=== PATIENT | female | born 1960 | race Caucasian/White ===

== ENCOUNTER 2017-05-15 15:49 | Emergency (ER) | payer SELFPAY ==
[2017-05-15] MEDS ORDERED: BUPIVACAINE HCL 0.75% INJ/PF (7.5 MG/1 ML) 10 ML SDV INJ ONE (16:47)
--- NOTE | 2017-05-15 16:49 | RADIOLOGY REPORT (SQ) ---
EXAM DESCRIPTION: CHEST PA/LAT COMPLETED DATE/TIME: 05/15/2017 4:39 pm REASON FOR STUDY: cough and congestion COMPARISON: None. EXAM PARAMETERS: NUMBER OF VIEWS: two views TECHNIQUE: Digital Frontal and Lateral radiographic views of the chest acquired. RADIATION DOSE: NA LIMITATIONS: none FINDINGS: LUNGS AND PLEURA: Diffuse honeycomb interstitial increased markings are present throughout the periphery of both lungs from pulmonary fibrosis. There is more dense consolidation in the right middle lobe, atelectasis versus pneumonia. Underlying mass could not entirely be excluded. No pleural effusion. No pneumothorax. MEDIASTINUM AND HILAR STRUCTURES: Fullness in the right middle lobe near the right hilum, atelectasis versus pneumonia. Mass could not be excluded. HEART AND VASCULAR STRUCTURES: Heart normal size. No evidence for failure. BONES: No acute findings. HARDWARE: None in the chest. OTHER: No other significant finding. IMPRESSION: Advanced pulmonary fibrosis Atelectasis versus pneumonia versus mass, right lower hilum/medial right middle lobe. TECHNICAL DOCUMENTATION: JOB ID: [id number] [employer]- All Rights Reserved
--- NOTE | 2017-05-15 17:16 | RADIOLOGY REPORT (SQ) ---
EXAM DESCRIPTION: CT CHEST WITHOUT COMPLETED DATE/TIME: 05/15/2017 4:59 pm REASON FOR STUDY: abnormal CXR COMPARISON: None. TECHNIQUE: CT scan performed of the chest without intravenous contrast. Images reviewed with lung, soft tissue and bone windows. Reconstructed coronal and sagittal MPR images reviewed. All images st ored on PACS. All CT scanners at this facility use dose modulation, iterative reconstruction, and/or weight based d osing when appropriate to reduce radiation dose to as low as reasonably achievable (ALARA). [facility]: Dose Right [facility]: CareDose [facility]: Dose Right [facility]: Teradose 4D [facility]: Medicine in Practice RADIATION DOSE: 5.4 mGy. LIMITATIONS: No technical limitations. FINDINGS: LUNGS AND PLEURA: Extensive pulmonary fibrosis is present with a honeycomb interstitial pa ttern throughout the periphery of both lungs. There is minimal consolidation in the right and left posterior costophrenic sulci on axial images 48- 52, likely atelectasis. Minimal pneumonia could not be excluded. No pleural effusion. No pneumothorax. HILAR AND MEDIASTINAL STRUCTURES: There is mediastinal and right hilar adenopathy, abnormal but nonsp ecific. Enlarged lymph nodes are as follows: Pretracheal 1.6 x 1.3 cm axial image 18 Pretracheal 1.1 x 1.1 cm axial image 22 Precarinal 1.8 x 1.5 cm axial image 26 Right hilar 2 x 1 cm axial image 29 Sub- carinal 2 x 1 cm axial image 29 HEART AND VASCULAR STRUCTURES: No aneurysm. No pericardial effusion. No cardiomegaly. Heavy hartley ry artery calcifications. UPPER ABDOMEN: Multiple less than 1 cm left upper pole hemorrhagic cysts, left kidney THYROID AND OTHER SOFT TISSUES: No masses. No adenopathy. BONES: No significant finding. HARDWARE: None in the chest. OTHER: No other significant findings. IMPRESSION: Minimal airspace disease in the right and left posterior costophrenic sulci, atelectasis versus pneumonia. Advanced diffuse pulmonary fibrosis Nonspecific mediastinal adenopathy TECHNICAL DOCUMENTATION: JOB ID: [id number] Quality ID # [id number]: Final reports with documentation of one or more dose reduction techniques (e.g., Au tomated exposure control, adjustment of the mA and/or kV according to patient size, use of iterative reconstruction technique) 2010 [employer]- All Rights Reserved
--- NOTE | 2017-05-15 18:27 | ER Document Report ---
ED General - General Chief Complaint: Congestion Stated Complaint: FLU SYMPTOMS Time Seen by Provider: 05/15/17 16:05 Mode of Arrival: Ambulatory Information source: Patient TRAVEL OUTSIDE OF THE [place] IN LAST 30 DAYS: No - HPI Notes: Patient presents with over 2 weeks of cough and intermittent sputum production states she has been feeling chilly and feverish. Patient is a daily smoker. Denies any chest pain. She does have intermittent shortness of breath with the cough and congestion. Denies any abdominal pain nausea vomiting or diarrhea. - Related Data Allergies/Adverse Reactions: No Known Allergies Allergy (Unverified 05/15/17 15:52) Past Medical History - Social History Smoking Status: Current Every Day Smoker Chew tobacco use (# tins/day): No Frequency of alcohol use: None Drug Abuse: None Family History: None Patient has suicidal ideation: No Patient has homicidal ideation: No Renal/ Medical History: Denies: Hx Peritoneal Dialysis Review of Systems - Review of Systems Constitutional: Chills, Fever, Malaise EENT: No symptoms reported Cardiovascular: No symptoms reported Respiratory: Short of breath, Sputum Gastrointestinal: No symptoms reported Genitourinary: No symptoms reported Musculoskeletal: No symptoms reported Skin: No symptoms reported Neurological/Psychological: No symptoms reported Physical Exam - Vital signs Vitals: Temp Pulse Resp BP Pulse Ox 98.4 F 127 H 18 183/96 H 96 05/15/17 15:55 05/15/17 15:55 05/15/17 15:55 05/15/17 15:55 05/15/17 15:55 - HEENT Head: Atraumatic Eyes: Normal Conjunctiva: Normal Extraocular movements intact: Yes Pupils: PERRL - Respiratory Chest status: Nontender Breath sounds: Nonproductive cough Chest palpation: Normal - Cardiovascular Rhythm: Tachycardia Heart sounds: Normal auscultation - Abdominal Distension: No distension Bowel sounds: Normal Tenderness: Nontender - Back Back: Normal - Extremities General lower extremity: Normal inspection - Neurological Cognition: Normal Orientation: AAOx4 - Skin Skin Color: Normal Course - Re-evaluation Re-evalutation: 05/15/17 18:26 Patient has abnormal chest x-ray with concern for possible tumor CT of chest shows concern for possible bibasilar infiltrates as well as enlarged mediastinal lymph nodes. Discussed findings with patient patient will be placed on antibiotics and need for follow-up with her primary care physician for further evaluation of her lymphadenopathy. Return precautions provided - Vital Signs Vital signs: Temp Pulse Resp BP Pulse Ox 98.4 F 127 H 18 183/96 H 96 05/15/17 15:55 05/15/17 15:55 05/15/17 15:55 05/15/17 15:55 05/15/17 15:55 - Diagnostic Test Radiology results interpreted by me: 05/15/17 18:26 Bibasilar infiltrates as well as mediastinal lymphadenopathy Discharge - Discharge Condition: Good Disposition: HOME, SELF-CARE Additional Instructions: Pneumonia Your examination indicates that you have pneumonia. This is an infection of the lung tissue, usually caused by bacteria or a virus. Symptoms include cough, fever, shaking chills, chest pain, shortness of breath, and coughing up bloody sputum. Treatment for bacterial pneumonia includes rest, antibiotics for 10 to 14 days, increasing your clear liquid intake, a cool mist humidifier at your bedside, and fever medication. Often, a repeat chest X-ray is performed in a few weeks--even if you feel better--to ascertain whether the infection has completely resolved and no underlying lung problem is present. You should call the physician if you develop persistent vomiting, high fever that does not respond to fever medication, increasing shortness of breath , confusion, or lethargy. Also, failure to improve within two to three days is an indication for re-examination. You have findings on your chest CT that shows enlarged lymph nodes that need to be further evaluated outpatient. Please follow-up with your family doctor Prescriptions: Albuterol Sulfate [Proair HFA Inhalation Aerosol 8.5 gm MDI] 2 puff IH Q4H PRN # 1 mdi PRN Reason: Levofloxacin [Levaquin 750 mg Tablet] 750 mg PO DAILY #10 tablet
[2017-05-15 18:48] VITALS: BP 150/90
== END 2017-05-15 18:43 | disposition home or self-care (01) ==
LOC: ER 15:49
DX: J18.9 Pneumonia, unspecified organism (principal); R50.9 Fever, unspecified; F17.200 Nicotine dependence, unspecified, uncomplicated
CPT/HCPCS: 71020; 71250; 99284

== ENCOUNTER 2017-08-26 01:21 | Observation (INO) | payer SELFPAY ==
[2017-08-26] MEDS ORDERED: ASPIRIN 81 MG TABLET, CHEWABLE PO ONE (01:43)
[2017-08-26] MEDS ORDERED: FENTANYL CITRATE INJ/PF 100 MCG/2 ML AMPUL IV ONE ×3 (01:44→09:08)
[2017-08-26] MEDS ORDERED: ONDANSETRON HCL INJ/PF 4 MG/2 ML SDV IV ONE (01:44)
[2017-08-26] MEDS ORDERED: NORMAL SALINE 1000 ML 500 ML IV ONE (01:44)
--- NOTE | 2017-08-26 01:47 | ER Document Report ---
ED Cardiac - General Chief Complaint: Chest Pain Stated Complaint: CHEST PAINS TROUBLE BREATHING Time Seen by Provider: 08/26/17 01:38 Notes: Patient is a 56-year-old female that comes emergency department for chief complaint of worsening pains in her chest, shortness of breath, and a pounding sensation in her chest which gives her headache. She also states that her legs have been swollen on both sides "for a while". She has a dry cough. She states she cannot sleep because of the discomfort across her chest on both sides. She is a daily smoker, she denies any other medical history including cardiac history. She states she tried to follow-up with primary care but she could not get an appointment. TRAVEL OUTSIDE OF THE [place] IN LAST 30 DAYS: No - Related Data Allergies/Adverse Reactions: No Known Allergies Allergy (Unverified 05/15/17 15:52) Past Medical History - General Information source: Patient - Social History Smoking Status: Current Every Day Smoker Frequency of alcohol use: None Drug Abuse: None Lives with: Spouse/Significant other Family History: None Renal/ Medical History: Denies: Hx Peritoneal Dialysis Surgical Hx: Negative - Immunizations Hx Diphtheria, Pertussis, Tetanus Vaccination: Yes Review of Systems - Review of Systems Constitutional: No symptoms reported EENT: No symptoms reported Cardiovascular: See HPI Respiratory: See HPI Gastrointestinal: No symptoms reported Genitourinary: No symptoms reported Female Genitourinary: No symptoms reported Musculoskeletal: No symptoms reported Skin: No symptoms reported Hematologic/Lymphatic: No symptoms reported Neurological/Psychological: See HPI Physical Exam - Vital signs Vitals: Temp 98.0 F 08/26/17 01:40 - General General appearance: Anxious In distress: None - HEENT Head: Normocephalic, Atraumatic Eyes: Normal Conjunctiva: Normal Extraocular movements intact: Yes Eyelashes: Normal Pupils: PERRL Nasal: Normal Mouth/Lips: Normal Mucous membranes: Normal Pharynx: Normal Neck: Normal - Respiratory Respiratory status: No respiratory distress. No: Labored, Tachypnea Breath sounds: Decreased air movement. No: Nonproductive cough, Wheezing - Cardiovascular Rhythm: Regular, Tachycardia Heart sounds: Normal auscultation, S1 appreciated, S2 appreciated - Abdominal Inspection: Normal Tenderness: Nontender - Back Back: Normal, Nontender. No: Tender, CVA tenderness - Extremities General upper extremity: Normal inspection, Nontender, Normal ROM, Normal strength General lower extremity: Normal inspection, Nontender, Edema - 1+ edema bilaterally, normal distal neurovascular exam, Normal ROM, Normal strength - Neurological Neuro grossly intact: Yes Cognition: Normal Orientation: AAOx4 Shell Coma Scale Eye Opening: Spontaneous Marcus Coma Scale Verbal: Oriented Shell Coma Scale Motor: Obeys Commands Shell Coma Scale Total: 15 Speech: Normal Motor strength normal: LUE, RUE, LLE, RLE Sensory: Normal - Psychological Associated symptoms: Anxious - Skin Skin Temperature: Warm Skin Moisture: Dry Skin Color: Normal Course - Re-evaluation Re-evalutation: Patient appears slightly anxious, she is tachycardic, hypertensive, complaining of pain across her chest. Reports cough but none noticed on exam. Decreased breath sounds but no wheezing, no labored breathing, no respiratory distress. EKG showing sinus tachycardia. CBC, chemistry generally unremarkable, troponin is not elevated, BNP is normal. TSH is very slightly elevated, T3 and T4 are unremarkable. D-dimer is positive. Discussed with patient, will perform CTA, because of upper abdominal and lower chest pain along with hypertension and tachycardia decision was made to perform of the chest, abdomen/pelvis. 08/26/17 CAT scan with multiple abnormalities including lymphadenopathy in the hilum on the right side, mediastinum, upper abdomen, and retroperitoneum. Moderate splenomegaly. 3 cm abdominal aortic aneurysm was recommended following, common bile duct with mild dilatation, however patient does not have right upper quadrant tenderness on my palpation. Pulmonary arterial hypertension as well. Mild small bowel ileus. No PE. Patient has improvement in her tachycardia with heart rate being 108, patient initially had improvement with blood pressure but now is hypertensive again. Patient was discussed in detail with Dr. Pearce, he recommends admission for additional evaluation of undifferentiated tachycardia, hypertension, shortness of breath, and a variety of findings on her CAT scan. 08/26/[address] Pinzon, patient will be admitted to telemetry. Patient states understanding and agreement. - Vital Signs Vital signs: Temp Pulse Resp BP Pulse Ox 98.0 F 112 H 16 174/111 H 95 08/26/17 01:40 08/26/17 05:45 08/26/17 06:01 08/26/17 06:01 08/26/17 06:01 - Laboratory Result Diagrams: 08/26/17 02:05 08/26/17 02:05 Laboratory results interpreted by me: 08/26/17 08/26/17 08/26/17 02:05 02:05 02:05 RDW 15.1 H Plt Count 114 L D-Dimer 2.03 H Total Bilirubin 1.5 H Direct Bilirubin 0.6 H AST 71 H Free T3 pg/mL 08/26/17 02:05 RDW Plt Count D-Dimer Total Bilirubin Direct Bilirubin AST Free T3 pg/mL 5.35 H Discharge - Discharge Clinical Impression: Tachycardia, Shortness of breath, Swelling of lower extremity Chest pain Qualifiers: Chest pain type: unspecified Qualified Code(s): R07.9 - Chest pain, unspecified Condition: Fair Disposition: ADMITTED INPATIENT Admitting Provider: Hospitalist Unit Admitted: Telemetry
--- NOTE | 2017-08-26 02:33 | RADIOLOGY REPORT (SQ) ---
EXAM DESCRIPTION: CHEST SINGLE VIEW CLINICAL HISTORY: 56 years Female, chest pain COMPARISON: CT and CR 05/15/2017. NUMBER OF VIEWS/TECHNIQUE: 1/AP LIMITATIONS: None. FINDINGS: Mild chronic interstitial lung disease pattern, normal cardiac silhouette, and intact bony thorax. Stable. IMPRESSION: Mild chronic interstitial lung disease pattern.
[2017-08-26 02:37] LABS: ABSOLUTE EOSINOPHILS # (AUTO) 0.2 10^3/uL (0.0-0.6); ABSOLUTE LYMPHOCYTES (AUTO) 1.7 10^3/uL (0.5-4.7); ABSOLUTE MONOCYTES (AUTO) 0.5 10^3/uL (0.1-1.4); ABSOLUTE NEUT (AUTO) 5.5 10^3/uL (1.7-8.2); BASOPHILS % (AUTO) 0.4 % (0-2); EOSINOPHILS % (AUTO) 2.8 % (0-6); HEMATOCRIT 40.9 % (36.0-47.0); HEMOGLOBIN 14.1 g/dL (12.0-15.5); MEAN CORPUSCULAR HEMOGLOBIN 30.8 pg (27.0-33.4); MEAN CORPUSCULAR HGB CONC 34.5 g/dL (32.0-36.0); MEAN CORPUSCULAR VOLUME 89 fl (80-97); MONOCYTES % (AUTO) 6.8 % (3-13); PLATELET COUNT 114 10^3/uL (150-450); RED BLOOD COUNT 4.57 10^6/uL (3.72-5.28); RED CELL DISTRIBUTION WIDTH 15.1 % (11.5-14.0); TOTAL CELLS COUNTED % (AUTO) 100 %
[2017-08-26 02:50] LABS: ALANINE AMINOTRANSFERASE 50 U/L (9-52); ALKALINE PHOSPHATASE 124 U/L (38-126); ANION GAP 11 (5-19); ASPARTATE AMINO TRANSFERASE 71 U/L (14-36); BILIRUBIN,DIRECT 0.6 mg/dL (0.0-0.4); BILIRUBIN,TOTAL 1.5 mg/dL (0.2-1.3); BLOOD UREA NITROGEN 12 mg/dL (7-20); CALCIUM 8.9 mg/dL (8.4-10.2); CARBON DIOXIDE 25 mmol/L (22-30); CHLORIDE 106 mmol/L (98-107); CREATINE KINASE 62 U/L (30-135); GLUCOSE 103 mg/dL (75-110); POTASSIUM 3.9 mmol/L (3.6-5.0); SODIUM 141.7 mmol/L (137-145)
[2017-08-26 03:03] LABS: CREATINE KINASE MB 0.92 ng/mL (<4.55); NT PRO BNP 227 pg/mL (5-900)
[2017-08-26 03:06] LABS: TROPONIN I < 0.012 ng/mL
[2017-08-26 03:58] LABS: VENOUS BLOOD BASE EXCESS 0.7 mmol/L; VENOUS BLOOD HCO3 25.6 mmol/L (20-32); VENOUS BLOOD PCO2 42.1 mmHg (35-63); VENOUS BLOOD PH 7.4 (7.30-7.42)
[2017-08-26 04:40] LABS: FREE T3 5.35 pg/mL (2.77-5.27); FREE T4 (FREE THYROXINE) 1.45 ng/dL (0.78-2.19)
[2017-08-26 04:54] LABS: THYROID STIMULATING HORMONE 4.16 uIU/mL (0.47-4.68)
--- NOTE | 2017-08-26 06:08 | RADIOLOGY REPORT (SQ) ---
EXAM DESCRIPTION: CTA CHEST (accession [id number]), CTA ABDOMEN/PELVIS W WO (accession [id number]) CLINICAL HISTORY: 56 years Female, tachycardic, chest/abd pain, LE swelling, DDIMER 2.03 COMPARISON: CT, chest, 05/15/2017, report only TECHNIQUE: 100 mL Isovue-370 IV contrast. Multiplanar reformat. This exam was performed according to our departmental dose-optimization program, which includes automated exposure control, adjustment of the mA and/or kV according to patient size and/or use of iterative reconstruction technique. FINDINGS: 2.6 cm diameter left main pulmonary artery and 2.7 cm right main pulmonary artery which suggests pulmonary arterial hypertension. Small coronary arterial calcification. Moderate right hilar and mild mediastinal lymphadenopathy. Moderate splenomegaly with splenic index of 1021. Atherosclerosis includes an infrarenal abdominal aortic aneurysm measuring 3 x 2.9 cm in cross-sectional diameters. Common bile duct diameter is 1.1 cm. Moderate upper abdominal periceliac lymphadenopathy. Moderate paraseptal emphysema. Mild fibrosis pattern of the lower lung mendoza. Moderate L5-S1 desiccated disc bulge. Mild small bowel ileus pattern. No pulmonary embolus. No right ventricular strain. Patent celiac and superior mesenteric arteries. Mild bilateral renal arterial stenosis. Normal appendix. Minimal free fluid in the pelvis. Inferior neck, axillae, airway, heart, liver, gallbladder, pancreas, adrenals, renal system, pelvic organs, and musculoskeleton appear otherwise unremarkable. IMPRESSION: 1. Moderate lymphadenopathy involves the right hilum, mediastinum, upper abdomen, and retroperitoneum. Moderate splenomegaly. Infectious, inflammatory, neoplastic processes are in the differential diagnosis. 2. A 3 cm diameter abdominal aortic aneurysm. Recommended follow-up: Every three years. 3. Common bile duct diameter is 1.1 cm. Consider laboratory/sonographic correlation. 4. Pulmonary arterial hypertension pattern. No evidence of pulmonary embolus. 5. Mild small bowel ileus.
--- NOTE | 2017-08-26 08:26 | EKG REPORT ---
SEVERITY:- ABNORMAL ECG - SINUS TACHYCARDIA ATRIAL PREMATURE COMPLEX PROBABLE LVH WITH SECONDARY REPOL ABNRM : Confirmed by: Cheo Hernandez MD 26-Aug-2017 08:25:26
[2017-08-26] MEDS ORDERED: MAGNESIUM HYDROXIDE SUSP 30 ML UDCUP PO PRN (10:10)
[2017-08-26] MEDS ORDERED: MAG HYDROX/AL HYDROX/SIMETH SUSP 30 ML UDCUP PO PRN (10:10)
[2017-08-26] MEDS ORDERED: ACETAMINOPHEN 325 MG TABLET PO PRN (10:10)
[2017-08-26] MEDS ORDERED: ONDANSETRON HCL INJ/PF 4 MG/2 ML SDV IV PRN (10:10)
[2017-08-26] MEDS ORDERED: LEVALBUTEROL HCL NEB 1.25 MG/3 ML AMPUL NEB PRN (10:50)
[2017-08-26] MEDS: OXYCODONE HCL IR 5 MG TABLET PO PRN ×3 (12:03→20:32)
[2017-08-26] MEDS ORDERED: HYDRALAZINE HCL INJ/PF 20 MG/1 ML SDV IV PRN (13:16)
[2017-08-26] MEDS: HEPARIN SOD (PORCINE) 5,000 UNIT/ML 1 ML SYRINGE SUBCUT SCH ×2 (13:48→21:40)
--- NOTE | 2017-08-26 17:55 | XCELERA REPORT ---
[address] [address] Transthoracic Echocardiogram Report Name: FRANKLIN SOTO Age: 56 yrs Gender: Female : 1960 Patient Status: Inpatient Patient Location: [address] [place] [address] Study Date: 08/26/2017 12:45 PM Height: 65 in Weight: 150 lb BSA: 1.8 m2 Procedure: A complete two-dimensional transthoracic echocardiogram was performed (2D, M-mode, spectral and color flow Doppler). The study was technically adequate with some images being suboptimal in quality. Reason For Study: dyspnea, edema Ordering Physician: ANGELA LEDBETTERC Performed By: Monica Ortiz Interpretation Summary Left ventricular systolic function is low normal. There is borderline concentric left ventricular hypertrophy. Doppler measurements suggest pseudonormalized left ventricular relaxation, which is associated with grade II/IV or mild to moderate diastolic dysfunction Wall motion cannot be accurately commented on, but no definite regional wall motion abnormalities noted. The left ventricle is grossly normal size. The right ventricular systolic function is normal. The left atrium is mildly dilated. The right atrium is normal in size There is a mild amount of mitral regurgitation There is no mitral valve stenosis. There is a trace to mild amount of aortic regurgitation There is no aortic valve stenosis There is a trace to mild amount of tricuspid regurgitation There is mild pulmonary hypertension by echo Right ventricular systolic pressure is estimated to be elevated at 30- 40mmHg. The aortic root is not well visualized but is probably normal size. The inferior vena cava appeared normal and decreased > 50% with respiration (RAP 5-10 mmHg) There is no pericardial effusion. MMode/2D Measurements & Calculations RVDd: 1.6 cm LVIDd: 4.8 cm FS: 32.2 % Ao root diam: 2.4 cm IVSd: 0.79 cm LVIDs: 3.3 cm EDV(Teich): 107.1 ml LVPWd: 0.81 cm ESV(Teich): 42.6 ml Ao root area: 4.4 cm2 EF(Teich): 60.2 % Doppler Measurements & Calculations MV E max bobby: MV dec slope: Ao V2 max: AI max bobby: 94.7 cm/sec 172.0 cm/sec 347.6 cm/sec MV A max bobby: 859.7 cm/sec2 Ao max PG: AI max P.2 cm/sec MV dec time: 11.8 mmHg 48.3 mmHg MV E/A: 0.82 0.11 sec AI dec slope: 65.3 cm/sec2 AI P1/2t: 1558 msec LV V1 max PG: PA V2 max: TR max bobby: 6.9 mmHg 85.3 cm/sec 302.1 cm/sec LV V1 max: PA max P.9 mmHg TR max P.5 cm/sec 36.5 mmHg Left Ventricle The left ventricle is grossly normal size. There is borderline concentric left ventricular hypertrophy. Left ventricular systolic function is low normal. Doppler measurements suggest pseudonormalized left ventricular relaxation, which is associated with grade II/IV or mild to moderate diastolic dysfunction. Wall motion cannot be accurately commented on, but no definite regional wall motion abnormalities noted. Right Ventricle The right ventricle is grossly normal size. There is normal right ventricular wall thickness. The right ventricular systolic function is normal. Atria The right atrium is normal in size. The left atrium is mildly dilated. Interarterial septum not well visualized and not well dopplered. Cannot comment on ASD/PFO presence. Mitral Valve The mitral valve leaflets are sclerotic, but show no functional abnormalities. There is no mitral valve stenosis. There is a mild amount of mitral regurgitation. Aortic Valve The aortic valve is not well visualized secondary to technical limitations. There is no aortic valve stenosis. There is a trace to mild amount of aortic regurgitation. Tricuspid Valve The tricuspid valve is not well visualized, but is grossly normal. There is no tricuspid stenosis. There is a trace to mild amount of tricuspid regurgitation. There is mild pulmonary hypertension by echo. Right ventricular systolic pressure is estimated to be elevated at 30-40mmHg. Pulmonic Valve The pulmonic valve is not well visualized. Great Vessels The aortic root is not well visualized but is probably normal size. The inferior vena cava appeared normal and decreased > 50% with respiration (RAP 5-10 mmHg). Effusions There is no pericardial effusion. : RADHA LEDBETTER > Jennifer Castillo
[2017-08-26] MEDS ORDERED: LORAZEPAM 0.5 MG TABLET PO PRN (18:19)
[2017-08-26] MEDS ORDERED: LISINOPRIL 10 MG TABLET PO ONE (18:45)
[2017-08-26] MEDS ORDERED: NICOTINE 14 MG/24 HR PATCH.TD24 TD PRN (18:46)
--- NOTE | 2017-08-26 18:47 | PDOC H&P ---
History of Present Illness Admission Date/PCP: 08/26/17 07:44 Patient complains of: Dyspnea History of Present Illness: FRANKLIN SOTO is a 56 year old female with no known past medical history secondary to poor healthcare access; the patient states that she has never had routine health care services. The patient presented to the emergency department with a complaint of dyspnea and bilateral lower leg edema that have been progressively worsening over the last 5-6 months. She states that her symptoms have significantly worsened since June when she was treated for pneumonia as an outpatient after a visit to the emergency department with no care follow-up afterwards. She states that since that time she has developed discomfort with breathing especially to the diaphragm area, fatigue, and generalized body aches. She denies fever, chills, typical cardiac chest pain symptoms, palpitations, orthopnea, abdominal pain, vomiting and diarrhea. She does endorse generalized abdominal discomfort. Additionally, the patient denies weight loss. Evaluation in the emergency department revealed tachycardia with heart rate initially in the 120s, hypertension 170/110. [place] workup was essentially normal other than an elevated d-dimer and bilirubin. Chest x-ray showed mild chronic interstitial lung disease. Follow-up CTA of the chest and abdomen demonstrated moderate lymphadenopathy to the mediastinum, upper abdomen, retroperitoneum with splenomegaly, a 3 cm AAA, dilated common bile duct to 1.1 cm, pulmonary atrial hypertension, and a mild small bowel ileus. The patient was referred to the hospitalist service for admission and continued evaluation of the undifferentiated tachycardia, hypertension, dyspnea, and abnormal CTA findings. Past Medical History Cardiac Medical History: Reports: Hypertension Pulmonary Medical History: Reports: None EENT Medical History: Reports: None Neurological Medical History: Reports: None Endocrine Medical History: Reports: None Renal/ Medical History: Reports: None Malignancy Medical History: Reports: None GI Medical History: Reports: None Musculoskeltal Medical History: Reports: None Skin Medical History: Reports: None Psychiatric Medical History: Reports: Tobacco Dependency Traumatic Medical History: Reports: None Hematology: Reports: None Infectious Medical History: Reports: None Past Surgical History Past Surgical History: Reports: Other - Skin grafts to left lower extremity as child Social History Information Source: Patient, Relative Lives with: Family, Spouse/Significant other Smoking Status: Current Every Day Smoker Cigarettes Packs Per Day: 1 Number of Years Smokin Frequency of Alcohol Use: None Hx Recreational Drug Use: No Drugs: None Hx Prescription Drug Abuse: No - Advance Directive Resuscitation Status: Full Code Family History Family History: CAD, DM, Hyperlipidemia, Hypertension, Malignancy Family History: Sister: Colon cancer Parental Family History Reviewed: Yes - Mother: [place], DM, CAD, breast CA Children Family History Reviewed: Yes Sibling(s) Family History Reviewed.: Yes Medication/Allergy Home Medications: No Home Medications 08/26/17 Allergies/Adverse Reactions: No Known Allergies Allergy (Verified 08/26/17 07:47) Review of Systems Constitutional: PRESENT: fatigue. ABSENT: chills, fever(s), headache(s), weight gain, weight loss Eyes: ABSENT: visual disturbances Ears: ABSENT: hearing changes Cardiovascular: PRESENT: dyspnea on exertion. ABSENT: chest pain, edema, orthropnea, palpitations Respiratory: PRESENT: dyspnea. ABSENT: cough, hemoptysis Gastrointestinal: PRESENT: nausea. ABSENT: abdominal pain, constipation, diarrhea, hematemesis, hematochezia, vomiting Genitourinary: PRESENT: other - Intermittent uterine bleeding. ABSENT: dysuria , hematuria Musculoskeletal: PRESENT: other - BLE trace edema. ABSENT: joint swelling Integumentary: ABSENT: rash, wounds Neurological: PRESENT: paresthesias - Fingers and toes. ABSENT: abnormal gait, abnormal speech, confusion, dizziness, focal weakness, syncope Psychiatric: ABSENT: anxiety, depression, homidical ideation, suicidal ideation Endocrine: ABSENT: cold intolerance, heat intolerance, polydipsia, polyuria Hematologic/Lymphatic: ABSENT: easy bleeding, easy bruising Physical Exam Vital Signs: Temp Pulse Resp BP Pulse Ox 98.2 F 101 H 16 170/103 H 96 08/26/17 15:39 08/26/17 16:23 08/26/17 16:23 08/26/17 15:39 08/26/17 16:23 Intake & Output 08/25/17 08/26/17 08/27/17 06:59 06:59 06:59 Intake Total 1000 Balance 1000 Weight 61.6 kg General appearance: PRESENT: no acute distress, well-developed, well-nourished Head exam: PRESENT: atraumatic, normocephalic Eye exam: PRESENT: conjunctiva pink, EOMI, PERRLA. ABSENT: scleral icterus Ear exam: PRESENT: normal external ear exam Mouth exam: PRESENT: moist, tongue midline Neck exam: ABSENT: carotid bruit, JVD, lymphadenopathy, thyromegaly Respiratory exam: PRESENT: clear to auscultation judi. ABSENT: rales, rhonchi, wheezes Cardiovascular exam: PRESENT: RRR. ABSENT: diastolic murmur, rubs, systolic murmur Pulses: PRESENT: normal dorsalis pedis pul Vascular exam: PRESENT: normal capillary refill GI/Abdominal exam: PRESENT: normal bowel sounds, soft. ABSENT: distended, guarding, mass, organolmegaly, rebound, tenderness Rectal exam: PRESENT: deferred Extremities exam: PRESENT: full ROM. ABSENT: calf tenderness, clubbing, pedal edema Neurological exam: PRESENT: alert, awake, oriented to person, oriented to place , oriented to time, oriented to situation, CN II-XII grossly intact. ABSENT: motor sensory deficit Psychiatric exam: PRESENT: appropriate affect, normal mood. ABSENT: homicidal ideation, suicidal ideation Skin exam: PRESENT: dry, intact, warm. ABSENT: cyanosis, rash Results Laboratory Results: 08/26/17 11:10 Troponin I < 0.012 Impressions: Chest X-Ray 08/26/17 01:43 IMPRESSION: Mild chronic interstitial lung disease pattern. Abdomen/Pelvis CTA 08/26/17 04:42 IMPRESSION: 1. Moderate lymphadenopathy involves the right hilum, mediastinum, upper abdomen, and retroperitoneum. Moderate splenomegaly. Infectious, inflammatory, neoplastic processes are in the differential diagnosis. 2. A 3 cm diameter abdominal aortic aneurysm. Recommended follow-up: Every three years. 3. Common bile duct diameter is 1.1 cm. Consider laboratory/sonographic correlation. 4. Pulmonary arterial hypertension pattern. No evidence of pulmonary embolus. 5. Mild small bowel ileus. Chest/Abdomen CTA 08/26/17 04:42 IMPRESSION: 1. Moderate lymphadenopathy involves the right hilum, mediastinum, upper abdomen, and retroperitoneum. Moderate splenomegaly. Infectious, inflammatory, neoplastic processes are in the differential diagnosis. 2. A 3 cm diameter abdominal aortic aneurysm. Recommended follow-up: Every three years. 3. Common bile duct diameter is 1.1 cm. Consider laboratory/sonographic correlation. 4. Pulmonary arterial hypertension pattern. No evidence of pulmonary embolus. 5. Mild small bowel ileus. Assessment & Plan - Diagnosis (1) Lymphadenopathy Is this a current diagnosis for this admission?: Yes Plan: Lymphadenopathy noted to the right hilum, mediastinum, upper abdomen, and retroperitoneal noted on CTA of unknown etiology; concerning for infectious, inflammatory, neoplastic process. The patient denies recent acute illnesses. LDH is elevated to 718 Blood and urine cultures are negative. HIV screening is negative. Hepatitis panel pending. The patient of healthcare, tobacco use, and family history of cancers, I am concerned about potential malignant process. Will ask oncology to evaluate and make recommendations for additional workup. (2) Splenomegaly Is this a current diagnosis for this admission?: Yes Plan: We will consult hematology/oncology; appreciate their evaluation and recommendations. (3) Ileus Is this a current diagnosis for this admission?: Yes Plan: Mild small bowel ileus noted by CTA. The patient does endorse generalized abdominal discomfort and nausea without emesis or constipation. We will place the patient on a clear liquid diet. (4) Common bile duct dilation Is this a current diagnosis for this admission?: Yes Plan: Noted by CTA of the abdomen. The patient has generalized abdominal pain that is not appreciably worsened by palpation. She does have slight nausea and a small bowel ileus. Bilirubin is mildly elevated, AST 71, remaining LFTs are normal. We will evaluate amylase and lipase. We will consider abdominal ultrasound if abnormal. (5) Tachycardia Is this a current diagnosis for this admission?: Yes Plan: Of unclear etiology. Serial troponins are negative Thyroid panel is essentially normal. Blood and urine cultures are pending. No obvious indication of an infectious process and so hold on antibiotic therapies at this time. Patient has been admitted to [facility] on continuous cardiac telemetry The patient has been placed on Coreg 3.125 twice daily. (6) Dyspnea Is this a current diagnosis for this admission?: Yes Plan: Of unclear etiology. Serial troponins are negative Chest x-ray negative for infiltrate. No pulmonary embolus on CTA. Echocardiogram demonstrated a low normal LVEF with mild diastolic dysfunction. ProBNP is 227 Blood and urine cultures are pending. No obvious indication of an infectious process and so hold on antibiotic therapies at this time. The patient has been admitted to [facility] on continuous cardiac telemetry. Supplemental oxygen as needed to maintain oxygen saturations greater than 90% Xopenex as needed. Continue to monitor closely. (7) Hypertension Is this a current diagnosis for this admission?: Yes Plan: The patient has been placed on Coreg 3.125 twice daily and lisinopril 10 mg daily IV hydralazine as needed. We will continue to monitor and adjust medications as necessary. (8) Tobacco dependence Is this a current diagnosis for this admission?: Yes Plan: Again cessation is encouraged. Nicotine replacement therapy is offered. - Time Time Spent: Greater than 70 Minutes Smoking Cessation Education: 3 to 10 minutes Medications reviewed and adjusted accordingly: Yes - Inpatient Certification Based on my medical assessment, after consideration of the patient's comorbidities, presenting symptoms, or acuity I expect that the services needed warrant INPATIENT care.: Yes I certify that my determination is in accordance with my understanding of Medicare's requirements for reasonable and necessary INPATIENT services [42 CFR 412.3e].: Yes Medical Necessity: Need For Continuous Telemetry Monitoring, Risk of Diagnosis Which Will Require Inpatient Eval/Care/Monitoring
[2017-08-26] MEDS ORDERED: IPRATROPIUM/ALBUTEROL 0.5-2.5 MG/3 ML AMPUL NEB PRN (18:56)
[2017-08-26] MEDS ORDERED: LORAZEPAM 0.5 MG TABLET ONE (19:50)
[2017-08-26 20:37] LABS: LIPASE 257.6 U/L (23-300)
[2017-08-26] MEDS: FAMOTIDINE 20 MG TABLET PO SCH (21:35)
[2017-08-26] MEDS: ZOLPIDEM TARTRATE 5 MG TABLET PO PRN (21:35)
[2017-08-26] MEDS: FUROSEMIDE INJ/PF 20 MG/2 ML SDV IV SCH (21:35)
[2017-08-26] MEDS: BUDESONIDE/FORMOTEROL 160-4.5 MCG 60 PUFF/6 GM MDI IH SCH (21:41)
[2017-08-26] MEDS ORDERED: CARVEDILOL 3.125 MG TABLET PO SCH (22:00)
[2017-08-27] MEDS: HEPARIN SOD (PORCINE) 5,000 UNIT/ML 1 ML SYRINGE SUBCUT SCH ×3 (05:30→21:23)
[2017-08-27] MEDS: OXYCODONE HCL IR 5 MG TABLET PO PRN ×4 (05:30→21:22)
[2017-08-27 06:27] LABS: ABSOLUTE EOSINOPHILS # (AUTO) 0.2 10^3/uL (0.0-0.6); ABSOLUTE LYMPHOCYTES (AUTO) 2.2 10^3/uL (0.5-4.7); ABSOLUTE MONOCYTES (AUTO) 0.4 10^3/uL (0.1-1.4); ABSOLUTE NEUT (AUTO) 2.6 10^3/uL (1.7-8.2); BASOPHILS % (AUTO) 0.4 % (0-2); EOSINOPHILS % (AUTO) 3.4 % (0-6); HEMATOCRIT 40.8 % (36.0-47.0); HEMOGLOBIN 13.9 g/dL (12.0-15.5); MEAN CORPUSCULAR HEMOGLOBIN 30.7 pg (27.0-33.4); MEAN CORPUSCULAR VOLUME 90 fl (80-97); PLATELET COUNT 111 10^3/uL (150-450); RED BLOOD COUNT 4.52 10^6/uL (3.72-5.28); RED CELL DISTRIBUTION WIDTH 15.1 % (11.5-14.0); SEGMENTED NEUTROPHILS % (AUTO) 48.2 % (42-78); TOTAL CELLS COUNTED % (AUTO) 100 %; WHITE BLOOD COUNT 5.4 10^3/uL (4.0-10.5)
[2017-08-27 06:39] LABS: HEPATITIS A AB IGM Negative (Negative); HEPATITIS B CORE AB IGM Negative (Negative); HEPATITS B SURFACE ANTIGEN Negative (Negative)
[2017-08-27 06:46] LABS: CHOLESTEROL 154.32 mg/dL (0-200); TRIGLYCERIDES 67 mg/dL (<150)
[2017-08-27 06:57] LABS: DIRECT LDL 45 mg/dL (<100)
[2017-08-27 07:03] LABS: HEPATITIS C VIRUS ANTIBODY >11.0 s/co ratio (0.0-0.9)
[2017-08-27 07:26] LABS: ERYTHROCYTE SEDIMENTATION RATE 30 mm/hr (0-30)
[2017-08-27 07:48] LABS: APPEARANCE,URINE CLEAR; BILIRUBIN,URINE NEGATIVE (NEGATIVE); COLOR,URINE YELLOW; GLUCOSE, URINE NEGATIVE (NEGATIVE); KETONES,URINE TRACE mg/dL (NEGATIVE); LEUKOCYTE ESTERASE,URINE SMALL (NEGATIVE); NITRITE,URINE NEGATIVE (NEGATIVE); PROTEIN,URINE NEGATIVE (NEGATIVE); URINE SPECIFIC GRAVITY 1.014
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
[2017-08-27] MEDS ORDERED: METOPROLOL TARTRATE 25 MG TABLET PO SCH (10:00)
[2017-08-27] MEDS: AMLODIPINE BESYLATE 5 MG TABLET PO SCH (10:24)
[2017-08-27] MEDS: ASPIRIN 81 MG TABLET, ENT COATED PO SCH (10:25)
[2017-08-27] MEDS: BUDESONIDE/FORMOTEROL 160-4.5 MCG 60 PUFF/6 GM MDI IH SCH ×2 (10:25→21:25)
[2017-08-27] MEDS: LISINOPRIL 10 MG TABLET PO SCH (10:25)
[2017-08-27] MEDS: DOCUSATE SODIUM 100 MG CAPSULE PO SCH (10:25)
[2017-08-27] MEDS: FUROSEMIDE INJ/PF 20 MG/2 ML SDV IV SCH ×2 (10:26→21:23)
[2017-08-27] MEDS: FAMOTIDINE 20 MG TABLET PO SCH ×2 (10:26→21:22)
--- NOTE | 2017-08-27 13:25 | RADIOLOGY REPORT (SQ) ---
EXAM DESCRIPTION: MRI ABDOMEN WITHOUT COMPLETED DATE/TIME: 08/27/2017 12:57 pm REASON FOR STUDY: r/o CBD stones COMPARISON: None. TECHNIQUE: Noncontrast MRCP. Source and MIP images reviewed. LIMITATIONS: None. FINDINGS: GALLBLADDER: Normal. INTRAHEPATIC DUCTS: Nondilated. EXTRAHEPATIC DUCTS: Common duct is normal caliber. No dilatation of the pancreatic duct. No ductal filling defects noted. PANCREAS: Generally homogeneous, no gross mass or significant signal alteration. No surrounding infl ammatory changes or fluid. Pancreatic duct is normal. LIVER, SPLEEN, KIDNEYS, ADRENALS: No significant abnormality. VESSELS: No evidence of aneurysm. Grossly appropriate flow voids in the major vascular structures. LUNG BASES: Grossly clear. OTHER: Trace free fluid in the right upper quadrant between the liver and diaphragm. IMPRESSION: NORMAL HEPATOBILIARY SYSTEM. NO STONES OR COMMON DUCT ABNORMALITIES. TRACE FREE FLUID I N THE RIGHT UPPER QUADRANT. TECHNICAL DOCUMENTATION: JOB ID: [id number] [employer]- All Rights Reserved Reading location - IP/workstation name: [facility]
[2017-08-27] MEDS: GABAPENTIN 100 MG CAPSULE PO SCH ×2 (13:30→21:22)
--- NOTE | 2017-08-27 15:30 | PDOC PROGRESS REPORT ---
Subjective Progress Note for:: 08/27/17 Subjective:: The patient is a 56 year old female with no known past medical history; pt has not had routine health care in several decades who was admitted on 08/26/17 for lymphadenopathy, hypertension, and tachycardia. The patient is seen on morning rounds with family members present. She is resting comfortably on room air. She states that she slept well and appreciates the anxiety and sleep medications that were provided. She complains of continued tachycardia but states that her dyspnea and fatigue seem somewhat improved today. We reviewed her lab and echocardiogram results thoroughly. She met with Dr. Keller this morning and expresses appreciation for the quick response by her to the consult. She has no other questions or concerns at this time. Reason For Visit: DYSPNEA Physical Exam Vital Signs: Temp Pulse Resp BP Pulse Ox 98.1 F 76 17 130/74 H 99 08/27/17 12:00 08/27/17 12:00 08/27/17 11:57 08/27/17 12:00 08/27/17 12:00 Intake & Output 08/26/17 08/27/17 08/28/17 06:59 06:59 06:59 Intake Total 1793 200 Balance 1793 200 Weight 60.4 kg General appearance: PRESENT: no acute distress, thin, well-developed, well- nourished Head exam: PRESENT: atraumatic, normocephalic Eye exam: PRESENT: conjunctiva pink, EOMI, PERRLA. ABSENT: scleral icterus Ear exam: PRESENT: normal external ear exam Mouth exam: PRESENT: moist, tongue midline Neck exam: ABSENT: carotid bruit, JVD, lymphadenopathy, thyromegaly Respiratory exam: PRESENT: crackles, symmetrical, unlabored. ABSENT: rales, rhonchi, wheezes Cardiovascular exam: PRESENT: RRR, +S1, +S2, tachycardia. ABSENT: diastolic murmur, rubs, systolic murmur Pulses: PRESENT: normal dorsalis pedis pul Vascular exam: PRESENT: normal capillary refill GI/Abdominal exam: PRESENT: normal bowel sounds, soft. ABSENT: distended, guarding, mass, organolmegaly, rebound, tenderness Rectal exam: PRESENT: deferred Extremities exam: PRESENT: full ROM, +1 edema - BLE. ABSENT: calf tenderness, clubbing, pedal edema Neurological exam: PRESENT: alert, awake, oriented to person, oriented to place , oriented to time, oriented to situation, CN II-XII grossly intact. ABSENT: motor sensory deficit Psychiatric exam: PRESENT: appropriate affect, normal mood. ABSENT: homicidal ideation, suicidal ideation Skin exam: PRESENT: dry, intact, warm. ABSENT: cyanosis, rash Results Laboratory Results: 08/27/17 05:29 08/26/17 08/27/17 08/27/17 20:00 05:29 05:29 WBC 5.4 RBC 4.52 Hgb 13.9 Hct 40.8 MCV 90 MCH 30.7 MCHC 34.0 RDW 15.1 H Plt Count 111 L Seg Neutrophils % 48.2 Lymphocytes % 40.0 Monocytes % 8.0 Eosinophils % 3.4 Basophils % 0.4 Absolute Neutrophils 2.6 Absolute Lymphocytes 2.2 Absolute Monocytes 0.4 Absolute Eosinophils 0.2 Absolute Basophils 0.0 Triglycerides 67 Cholesterol 154.32 LDL Cholesterol Direct 45 VLDL Cholesterol 13.0 HDL Cholesterol 56 Amylase 48 Lipase 257.6 Urine Color Urine Appearance Urine pH Ur Specific [place] Urine Protein Urine Glucose (UA) Urine Ketones Urine Blood Urine Nitrite Ur Leukocyte Esterase Urine WBC (Auto) Urine RBC (Auto) 08/27/17 06:50 WBC RBC Hgb Hct MCV MCH MCHC RDW Plt Count Seg Neutrophils % Lymphocytes % Monocytes % Eosinophils % Basophils % Absolute Neutrophils Absolute Lymphocytes Absolute Monocytes Absolute Eosinophils Absolute Basophils Triglycerides Cholesterol LDL Cholesterol Direct VLDL Cholesterol HDL Cholesterol Amylase Lipase Urine Color YELLOW Urine Appearance CLEAR Urine pH 6.0 Ur Specific [place] 1.014 Urine Protein NEGATIVE Urine Glucose (UA) NEGATIVE Urine Ketones TRACE H Urine Blood NEGATIVE Urine Nitrite NEGATIVE Ur Leukocyte Esterase SMALL H Urine WBC (Auto) 9 Urine RBC (Auto) 1 08/26/17 11:10 Troponin I < 0.012 Impressions: Chest X-Ray 08/26/17 01:43 IMPRESSION: Mild chronic interstitial lung disease pattern. Abdomen/Pelvis CTA 08/26/17 04:42 IMPRESSION: 1. Moderate lymphadenopathy involves the right hilum, mediastinum, upper abdomen, and retroperitoneum. Moderate splenomegaly. Infectious, inflammatory, neoplastic processes are in the differential diagnosis. 2. A 3 cm diameter abdominal aortic aneurysm. Recommended follow-up: Every three years. 3. Common bile duct diameter is 1.1 cm. Consider laboratory/sonographic correlation. 4. Pulmonary arterial hypertension pattern. No evidence of pulmonary embolus. 5. Mild small bowel ileus. Chest/Abdomen CTA 08/26/17 04:42 IMPRESSION: 1. Moderate lymphadenopathy involves the right hilum, mediastinum, upper abdomen, and retroperitoneum. Moderate splenomegaly. Infectious, inflammatory, neoplastic processes are in the differential diagnosis. 2. A 3 cm diameter abdominal aortic aneurysm. Recommended follow-up: Every three years. 3. Common bile duct diameter is 1.1 cm. Consider laboratory/sonographic correlation. 4. Pulmonary arterial hypertension pattern. No evidence of pulmonary embolus. 5. Mild small bowel ileus. Abdomen MRI 08/27/17 00:00 IMPRESSION: NORMAL HEPATOBILIARY SYSTEM. NO STONES OR COMMON DUCT ABNORMALITIES. TRACE FREE FLUID IN THE RIGHT UPPER QUADRANT. Assessment & Plan - Diagnosis (1) Lymphadenopathy Is this a current diagnosis for this admission?: Yes Plan: Lymphadenopathy noted to the right hilum, mediastinum, upper abdomen, and retroperitoneal noted on CTA of unknown etiology; concerning for infectious, inflammatory, neoplastic process. The patient denies recent acute illnesses. LDH is elevated to 718 Blood and urine cultures are pending. HIV screening is negative. Hepatitis C positive. Hep A/B negative. Oncology has been consulted; appreciate their assistance. Primary plan per Oncology. Surgery has been consulted for lymph node biopsy. (2) Splenomegaly Is this a current diagnosis for this admission?: Yes Plan: We will consult hematology/oncology; appreciate their evaluation and recommendations. (3) Ileus Is this a current diagnosis for this admission?: Yes Plan: Mild small bowel ileus noted by CTA. The patient does endorse generalized abdominal discomfort and nausea without emesis or constipation. Pt has not had a bm, uncertain of passing flatus. Mild generalized tenderness is present. + bowel sounds. Will make npo until evaluated by surgery. (4) Common bile duct dilation Is this a current diagnosis for this admission?: Yes Plan: Noted by CTA of the abdomen. The patient has generalized abdominal pain that is not appreciably worsened by palpation. She does have slight nausea and a small bowel ileus. Bilirubin is mildly elevated, AST 71, remaining LFTs are normal. Amylase and lipase are normal. Surgery has been consulted; appreciate their evaluation and recommendations. (5) Tachycardia Is this a current diagnosis for this admission?: Yes Plan: Improved. Serial troponins are negative Thyroid panel is essentially normal. Blood and urine cultures are pending. No obvious indication of an infectious process and so hold on antibiotic therapies at this time. Patient has been admitted to [facility] on continuous cardiac telemetry Pt medications have been adjusted; currently on Toporol XL 25mg BID, amlodipine 5 mg daily, and lisinopril 10 mg daily. (6) Dyspnea Is this a current diagnosis for this admission?: Yes Plan: Of unclear etiology. Serial troponins are negative Chest x-ray negative for infiltrate. No pulmonary embolus on CTA. Echocardiogram demonstrated a low normal LVEF with mild diastolic dysfunction. ProBNP is 227 Blood and urine cultures are pending. No obvious indication of an infectious process and so hold on antibiotic therapies at this time. The patient has been admitted to [facility] on continuous cardiac telemetry. Supplemental oxygen as needed to maintain oxygen saturations greater than 90% Duonebs as needed. Likely a component of COPD, therefore have added Symbicort Continue to monitor closely. (7) Hypertension Is this a current diagnosis for this admission?: Yes Plan: Much improved. Continue Toporol XL 25mg BID, amlodipine 5 mg daily, and lisinopril 10 mg daily. IV hydralazine as needed. We will continue to monitor and adjust medications as necessary. (8) Tobacco dependence Is this a current diagnosis for this admission?: Yes Plan: Tobacco cessation is encouraged. Nicotine replacement therapy is offered. - Time Time Spent with patient: 35 or more minutes Medications reviewed and adjusted accordingly: Yes Anticipated discharge: Home Within: within 48 hours
--- NOTE | 2017-08-27 16:13 | PDOC CONSULTATION ---
Consultation Consult Date: 08/27/17 Attending physician:: NAVDEEP NOLASCO Consult reason:: Lymph Node Biopsy. Bile duct dilatation with increased LFT History of Present Illness Admission Date/PCP: 08/26/17 07:44 History of Present Illness: This is s 56 yo F without a PCP who was admitted to the hospital for dyspnea and bilateral lower extremity edema. The leg edema has been worsening over the last 6 months. She also complained of some chest discomfort. She had recently been seen in the ER and was treated for pneumonia but did not have adequate post ER discharge follow up plan. She had a CT abdomen and chest that revealed hilar and mediastinal lymphadenopathy in the chest and retroperitoneal adenopathy as well as splenomegaly, mild dilatation of the common bile duct in the abdomen. Her AST was elevated but slightly < 2x normal; ALT and ALP were at high normal range, no hyperbilirubinemia. I have been consulted for lymph node biopsy, as well as evaluation of her biliary system. Past Medical History Cardiac Medical History: Reports: Hypertension Pulmonary Medical History: Reports: None EENT Medical History: Reports: None Neurological Medical History: Reports: None Endocrine Medical History: Reports: None Renal/ Medical History: Reports: None Malignancy Medical History: Reports: None GI Medical History: Reports: None Musculoskeltal Medical History: Reports: None Skin Medical History: Reports: None Psychiatric Medical History: Reports: Tobacco Dependency Traumatic Medical History: Reports: None Hematology: Reports: None, Anemia - Secondary to heavy menses which required blood transfusion about 10 yrs ago Infectious Medical History: Reports: None Past Surgical History Past Surgical History: Reports: Other - Skin grafts to left lower extremity as child. Dental extractions Social History Lives with: Family - She has 3 children, 11 grandchildren and 1 GGK., Spouse/ Significant other Smoking Status: Current Every Day Smoker Cigarettes Packs Per Day: 1 Number of Years Smokin Frequency of Alcohol Use: None Hx Recreational Drug Use: No Drugs: None Hx Prescription Drug Abuse: No - Advance Directive Resuscitation Status: Full Code Family History Family History: CAD, DM, Hyperlipidemia, Hypertension, Malignancy Parental Family History Reviewed: Yes - breast cancer in mother Children Family History Reviewed: Unknown Sibling(s) Family History Reviewed.: Unknown Medication/Allergy Home Medications: No Home Medications 08/26/17 Allergies/Adverse Reactions: No Known Allergies Allergy (Verified 08/26/17 07:47) Review of Systems Constitutional: ABSENT: anorexia, chills, fatigue, fever(s), headache(s), night sweats, weakness, weight loss Eyes: ABSENT: visual disturbances Ears: ABSENT: hearing changes Nose, Mouth, and Throat: ABSENT: headache(s), mouth pain, sore throat, vertigo Cardiovascular: PRESENT: chest pain, dyspnea on exertion, edema. ABSENT: orthropnea, palpitations Respiratory: PRESENT: dyspnea, other. ABSENT: cough, hemoptysis, sputum Gastrointestinal: ABSENT: abdominal pain, bloating, coffee ground emesis, constipation, diarrhea, dysphagia, heartburn, hematemesis, hematochezia, melena , nausea, vomiting Genitourinary: ABSENT: difficulty urinating, dysuria, hematuria, nocturia Musculoskeletal: ABSENT: joint swelling Integumentary: ABSENT: rash, wounds Neurological: ABSENT: abnormal gait, abnormal speech, confusion, dizziness, focal weakness, syncope Psychiatric: ABSENT: anxiety, depression, homidical ideation, suicidal ideation Physical Exam Vital Signs: Temp Pulse Resp BP Pulse Ox 98.1 F 76 17 130/74 H 99 08/27/17 12:00 08/27/17 12:00 08/27/17 11:57 08/27/17 12:00 08/27/17 12:00 Intake & Output 08/26/17 08/27/17 08/28/17 06:59 06:59 06:59 Intake Total 1793 200 Balance 1793 200 Weight 60.4 kg General appearance: PRESENT: no acute distress, cooperative, thin Head exam: PRESENT: atraumatic, normocephalic Eye exam: PRESENT: conjunctiva pink, EOMI, PERRLA. ABSENT: scleral icterus Ear exam: PRESENT: normal external ear exam Neck exam: PRESENT: lymphadenopathy - right supraclavicular lymphadenopathy Respiratory exam: PRESENT: clear to auscultation judi. ABSENT: rales, rhonchi, wheezes Cardiovascular exam: PRESENT: RRR. ABSENT: diastolic murmur, rubs, systolic murmur GI/Abdominal exam: PRESENT: normal bowel sounds, soft. ABSENT: distended, guarding, mass, organolmegaly, rebound, tenderness Musculoskeletal exam: PRESENT: full ROM Neurological exam: PRESENT: alert, awake, oriented to person, oriented to place , oriented to time, oriented to situation, CN II-XII grossly intact. ABSENT: motor sensory deficit Psychiatric exam: PRESENT: appropriate affect, normal mood. ABSENT: homicidal ideation, suicidal ideation Results Laboratory Results: 08/27/17 05:29 08/26/17 08/27/17 08/27/17 20:00 05:29 05:29 WBC 5.4 RBC 4.52 Hgb 13.9 Hct 40.8 MCV 90 MCH 30.7 MCHC 34.0 RDW 15.1 H Plt Count 111 L Seg Neutrophils % 48.2 Lymphocytes % 40.0 Monocytes % 8.0 Eosinophils % 3.4 Basophils % 0.4 Absolute Neutrophils 2.6 Absolute Lymphocytes 2.2 Absolute Monocytes 0.4 Absolute Eosinophils 0.2 Absolute Basophils 0.0 Triglycerides 67 Cholesterol 154.32 LDL Cholesterol Direct 45 VLDL Cholesterol 13.0 HDL Cholesterol 56 Amylase 48 Lipase 257.6 Urine Color Urine Appearance Urine pH Ur Specific [place] Urine Protein Urine Glucose (UA) Urine Ketones Urine Blood Urine Nitrite Ur Leukocyte Esterase Urine WBC (Auto) Urine RBC (Auto) 08/27/17 06:50 WBC RBC Hgb Hct MCV MCH MCHC RDW Plt Count Seg Neutrophils % Lymphocytes % Monocytes % Eosinophils % Basophils % Absolute Neutrophils Absolute Lymphocytes Absolute Monocytes Absolute Eosinophils Absolute Basophils Triglycerides Cholesterol LDL Cholesterol Direct VLDL Cholesterol HDL Cholesterol Amylase Lipase Urine Color YELLOW Urine Appearance CLEAR Urine pH 6.0 Ur Specific [place] 1.014 Urine Protein NEGATIVE Urine Glucose (UA) NEGATIVE Urine Ketones TRACE H Urine Blood NEGATIVE Urine Nitrite NEGATIVE Ur Leukocyte Esterase SMALL H Urine WBC (Auto) 9 Urine RBC (Auto) 1 08/26/17 11:10 Troponin I < 0.012 Impressions: Chest X-Ray 08/26/17 01:43 IMPRESSION: Mild chronic interstitial lung disease pattern. Abdomen/Pelvis CTA 08/26/17 04:42 IMPRESSION: 1. Moderate lymphadenopathy involves the right hilum, mediastinum, upper abdomen, and retroperitoneum. Moderate splenomegaly. Infectious, inflammatory, neoplastic processes are in the differential diagnosis. 2. A 3 cm diameter abdominal aortic aneurysm. Recommended follow-up: Every three years. 3. Common bile duct diameter is 1.1 cm. Consider laboratory/sonographic correlation. 4. Pulmonary arterial hypertension pattern. No evidence of pulmonary embolus. 5. Mild small bowel ileus. Chest/Abdomen CTA 08/26/17 04:42 IMPRESSION: 1. Moderate lymphadenopathy involves the right hilum, mediastinum, upper abdomen, and retroperitoneum. Moderate splenomegaly. Infectious, inflammatory, neoplastic processes are in the differential diagnosis. 2. A 3 cm diameter abdominal aortic aneurysm. Recommended follow-up: Every three years. 3. Common bile duct diameter is 1.1 cm. Consider laboratory/sonographic correlation. 4. Pulmonary arterial hypertension pattern. No evidence of pulmonary embolus. 5. Mild small bowel ileus. Abdomen MRI 08/27/17 00:00 IMPRESSION: NORMAL HEPATOBILIARY SYSTEM. NO STONES OR COMMON DUCT ABNORMALITIES. TRACE FREE FLUID IN THE RIGHT UPPER QUADRANT. Assessment & Plan - Diagnosis (1) Lymphadenopathy Is this a current diagnosis for this admission?: Yes - Plan Summary Plan Summary: Will schedule for a cervical lymph node biopsy tomorrow. MRCP to evaluate the biliary system - I doubt she has a cholangiocarcinoma (she would have significant hyperbilirubinemia with that)
[2017-08-27] MEDS ORDERED: DEXTROSE 40% GEL 15 GM TUBE PO PRN ×2 (18:48)
[2017-08-27] MEDS ORDERED: DEXTROSE 50%-WATER 25 GM/50 ML DISP.SYRIN IV PRN ×2 (18:48)
[2017-08-27] MEDS ORDERED: GLUCAGON,HUMAN RECOMB 1 MG INJ SUBCUT PRN (18:48)
[2017-08-27] MEDS: ZOLPIDEM TARTRATE 5 MG TABLET PO PRN (21:22)
[2017-08-27] MEDS: METOPROLOL SUCCINATE 25 MG TAB.SR.24H PO SCH (21:27)
[2017-08-28] MEDS: GABAPENTIN 100 MG CAPSULE PO SCH ×3 (05:27→21:14)
[2017-08-28] MEDS: HEPARIN SOD (PORCINE) 5,000 UNIT/ML 1 ML SYRINGE SUBCUT SCH ×3 (05:27→21:26)
[2017-08-28 07:18] LABS: ABSOLUTE EOSINOPHILS # (AUTO) 0.3 10^3/uL (0.0-0.6); ABSOLUTE LYMPHOCYTES (AUTO) 2.2 10^3/uL (0.5-4.7); ABSOLUTE MONOCYTES (AUTO) 0.4 10^3/uL (0.1-1.4); ABSOLUTE NEUT (AUTO) 2.6 10^3/uL (1.7-8.2); BASOPHILS % (AUTO) 0.5 % (0-2); EOSINOPHILS % (AUTO) 5.5 % (0-6); HEMATOCRIT 39.1 % (36.0-47.0); HEMOGLOBIN 13.4 g/dL (12.0-15.5); LYMPHOCYTES % (AUTO) 39.5 % (13-45); MEAN CORPUSCULAR HEMOGLOBIN 30.8 pg (27.0-33.4); MEAN CORPUSCULAR HGB CONC 34.3 g/dL (32.0-36.0); MEAN CORPUSCULAR VOLUME 90 fl (80-97); MONOCYTES % (AUTO) 7.3 % (3-13); PLATELET COUNT 108 10^3/uL (150-450); RED BLOOD COUNT 4.36 10^6/uL (3.72-5.28); RED CELL DISTRIBUTION WIDTH 15.1 % (11.5-14.0); SEGMENTED NEUTROPHILS % (AUTO) 47.2 % (42-78); TOTAL CELLS COUNTED % (AUTO) 100 %; WHITE BLOOD COUNT 5.6 10^3/uL (4.0-10.5)
[2017-08-28] MEDS: OXYCODONE HCL IR 5 MG TABLET PO PRN ×2 (07:29→17:56)
--- NOTE | 2017-08-28 08:05 | PDOC PROGRESS REPORT ---
Subjective Progress Note for:: 08/28/17 Subjective:: Patient feeling better. She is anxious about results of upcoming test, but very glad to know that biopsy is being done today and will have answers soon. Reason For Visit: DYSPNEA Physical Exam Vital Signs: Temp Pulse Resp BP Pulse Ox 98.2 F 71 16 122/70 95 08/28/17 07:24 08/28/17 07:48 08/28/17 07:24 08/28/17 07:48 08/28/17 07:24 Intake & Output 08/27/17 08/28/17 08/29/17 06:59 06:59 06:59 Intake Total 1793 750 Balance 1793 750 Weight 60.4 kg 60.2 kg General appearance: PRESENT: no acute distress, thin Teeth exam: PRESENT: poor dentation Respiratory exam: PRESENT: unlabored Neurological exam: PRESENT: alert, awake, oriented to person, oriented to place , oriented to time, oriented to situation Psychiatric exam: PRESENT: appropriate affect Results Laboratory Results: 08/28/17 06:17 08/27/17 08/28/17 06:50 06:17 WBC 5.6 RBC 4.36 Hgb 13.4 Hct 39.1 MCV 90 MCH 30.8 MCHC 34.3 RDW 15.1 H Plt Count 108 L Seg Neutrophils % 47.2 Lymphocytes % 39.5 Monocytes % 7.3 Eosinophils % 5.5 Basophils % 0.5 Absolute Neutrophils 2.6 Absolute Lymphocytes 2.2 Absolute Monocytes 0.4 Absolute Eosinophils 0.3 Absolute Basophils 0.0 Urine Color YELLOW Urine Appearance CLEAR Urine pH 6.0 Ur Specific [place] 1.014 Urine Protein NEGATIVE Urine Glucose (UA) NEGATIVE Urine Ketones TRACE H Urine Blood NEGATIVE Urine Nitrite NEGATIVE Ur Leukocyte Esterase SMALL H Urine WBC (Auto) 9 Urine RBC (Auto) 1 08/26/17 11:10 Troponin I < 0.012 Impressions: Chest X-Ray 08/26/17 01:43 IMPRESSION: Mild chronic interstitial lung disease pattern. Abdomen/Pelvis CTA 08/26/17 04:42 IMPRESSION: 1. Moderate lymphadenopathy involves the right hilum, mediastinum, upper abdomen, and retroperitoneum. Moderate splenomegaly. Infectious, inflammatory, neoplastic processes are in the differential diagnosis. 2. A 3 cm diameter abdominal aortic aneurysm. Recommended follow-up: Every three years. 3. Common bile duct diameter is 1.1 cm. Consider laboratory/sonographic correlation. 4. Pulmonary arterial hypertension pattern. No evidence of pulmonary embolus. 5. Mild small bowel ileus. Chest/Abdomen CTA 08/26/17 04:42 IMPRESSION: 1. Moderate lymphadenopathy involves the right hilum, mediastinum, upper abdomen, and retroperitoneum. Moderate splenomegaly. Infectious, inflammatory, neoplastic processes are in the differential diagnosis. 2. A 3 cm diameter abdominal aortic aneurysm. Recommended follow-up: Every three years. 3. Common bile duct diameter is 1.1 cm. Consider laboratory/sonographic correlation. 4. Pulmonary arterial hypertension pattern. No evidence of pulmonary embolus. 5. Mild small bowel ileus. Abdomen MRI 08/27/17 00:00 IMPRESSION: NORMAL HEPATOBILIARY SYSTEM. NO STONES OR COMMON DUCT ABNORMALITIES. TRACE FREE FLUID IN THE RIGHT UPPER QUADRANT. Assessment & Plan - Diagnosis (1) Lymphadenopathy Is this a current diagnosis for this admission?: Yes Plan: For excisional biopsy of Lymph node today. (2) Common bile duct dilation Is this a current diagnosis for this admission?: Yes Plan: Surgery following. No indication of acute cholecystitis at this time. (3) Thrombocytopenia Is this a current diagnosis for this admission?: Yes Plan: Mild and chronic. Currently stable. (4) HCV antibody positive Is this a current diagnosis for this admission?: Yes - Plan Summary Plan Summary: I am happy to see patient in the office next week to review results of biopsy. I do not expect results until mid-week. OK from my standpoint to discharge patient, pending results of biopsy.
--- NOTE | 2017-08-28 08:25 | RADIOLOGY REPORT (SQ) ---
EXAM DESCRIPTION: U/S ABDOMEN LIMITED W/O DOP COMPLETED DATE/TIME: 08/27/2017 6:38 pm REASON FOR STUDY: r/o gallstones COMPARISON: MRCP dated 08/27/[address] dated 08/26/2017. TECHNIQUE: Dynamic and static grayscale images acquired of the abdomen and recorded on PACS. Additio nal selected color Doppler and spectral images recorded. LIMITATIONS: None. FINDINGS: PANCREAS: No masses. Visualized pancreatic duct normal caliber. LIVER: No masses. Echotexture normal. LIVER VASCULATURE: Normal directional flow of the main portal vein and hepatic veins. GALLBLADDER: No stones. Normal wall thickness. No pericholecystic fluid. ULTRASOUND-DETECTED FAGAN'S SIGN: Negative. INTRAHEPATIC DUCTS AND COMMON DUCT: The common bile duct is dilated, measuring 1.3 cm. INFERIOR VENA CAVA: Normal flow. AORTA: The mid abdominal aorta is upper limits of normal, measuring 3 cm. RIGHT KIDNEY: Normal size. Normal echogenicity. No solid or suspicious masses. No hydronephrosis. No calcifications. PERITONEAL AND RIGHT PLEURAL SPACE: No ascites or effusions. OTHER: No other significant findings. IMPRESSION: 1. DILATED COMMON BILE DUCT, MEASURING 1.3 CM. ON THE PREVIOUS MRCP THE MEASUREMENT WAS 8 TO 9 MM. ERCP MAY BE NECESSARY FOR FURTHER EVALUATION. 2. ABDOMINAL AORTA UPPER LIMITS OF NORMAL IN SIZE. 3. NO OTHER SIGNIFICANT FINDINGS. NO GALLSTONES VISUALIZED. TECHNICAL DOCUMENTATION: JOB ID: [id number] [employer]- All Rights Reserved Reading location - IP/workstation name: [facility]
[2017-08-28] MEDS ORDERED: ROCURONIUM BROMIDE INJ 50 MG/5 ML VIAL IV ONE (08:26)
[2017-08-28] MEDS ORDERED: NEOSTIGMINE METHYLSULFATE 10 MG/10 ML VIAL ONE (08:26)
[2017-08-28] MEDS ORDERED: LIDOCAINE 2% INJ-PF (20 MG/ML) 2 ML AMPUL ONE (08:26)
[2017-08-28] MEDS ORDERED: METOCLOPRAMIDE HCL INJ/PF 10 MG/2 ML SDV ONE (08:26)
[2017-08-28] MEDS ORDERED: GLYCOPYRROLATE INJ 0.4 MG/2 ML VIAL ONE (08:26)
[2017-08-28] MEDS ORDERED: SUCCINYLCHOLINE CHLORIDE INJ 200 MG/10 ML VIAL ONE (08:26)
[2017-08-28] MEDS ORDERED: PHENYLEPHRINE HCL INJ/PF 10 MG/1 ML SDV ONE (08:26)
[2017-08-28] MEDS: BUDESONIDE/FORMOTEROL 160-4.5 MCG 60 PUFF/6 GM MDI IH SCH ×2 (09:37→21:14)
[2017-08-28] MEDS: FUROSEMIDE INJ/PF 20 MG/2 ML SDV IV SCH ×2 (09:37→21:14)
[2017-08-28] MEDS: METOPROLOL SUCCINATE 25 MG TAB.SR.24H PO SCH ×2 (09:38→21:14)
[2017-08-28] MEDS: AMLODIPINE BESYLATE 5 MG TABLET PO SCH (09:38)
[2017-08-28] MEDS: LISINOPRIL 10 MG TABLET PO SCH (09:38)
[2017-08-28] MEDS: DOCUSATE SODIUM 100 MG CAPSULE PO SCH (09:38)
[2017-08-28] MEDS: FAMOTIDINE 20 MG TABLET PO SCH ×2 (09:38→22:32)
[2017-08-28] MEDS: ASPIRIN 81 MG TABLET, ENT COATED PO SCH (09:38)
[2017-08-28] MEDS ORDERED: BUPIVACAINE HCL 0.25 % INJ/PF (2.5 MG/1 ML) 30 ML VIAL ONE (11:30)
[2017-08-28] MEDS ORDERED: LIDOCAINE 1% INJ-PF (10 MG/ML) 30 ML SDV ONE (11:30)
[2017-08-28] MEDS ORDERED: PROPOFOL INJ 200 MG/20 ML VIAL IV ONE (11:33)
[2017-08-28] MEDS ORDERED: MIDAZOLAM 2 MG/2 ML INJ ONE (11:33)
[2017-08-28] MEDS ORDERED: FENTANYL CITRATE INJ/PF 100 MCG/2 ML AMPUL ONE ×3 (11:33→16:40)
[2017-08-28] MEDS ORDERED: CEFAZOLIN INJ 1 GM VIAL ONE (11:46)
[2017-08-28] MEDS ORDERED: FENTANYL CITRATE INJ/PF 100 MCG/2 ML AMPUL IV PRN ×4 (13:05→16:30)
[2017-08-28] MEDS ORDERED: OXYCODONE-ACETAMINOPHEN 5-325 MG TABLET PO PRN ×2 (13:05)
[2017-08-28] MEDS ORDERED: MEPERIDINE HCL/PF INJ 25 MG/1 ML DISP.SYRIN IV PRN (13:05)
[2017-08-28] MEDS ORDERED: PROMETHAZINE HCL INJ 25 MG/1 ML VIAL IV PRN ×2 (13:05)
[2017-08-28] MEDS ORDERED: DIPHENHYDRAMINE HCL 50 MG/ML VIAL IV PRN (13:05)
[2017-08-28] MEDS ORDERED: IPRATROPIUM/ALBUTEROL 0.5-2.5 MG/3 ML AMPUL NEB ONE (13:51)
--- NOTE | 2017-08-28 14:00 | PDOC PROGRESS REPORT ---
Subjective Progress Note for:: 08/28/17 Subjective:: No new issues Reason For Visit: DYSPNEA Physical Exam Vital Signs: Temp Pulse Resp BP Pulse Ox 98.2 F 65 16 123/73 97 08/28/17 10:54 08/28/17 10:54 08/28/17 10:54 08/28/17 10:54 08/28/17 10:54 Intake & Output 08/27/17 08/28/17 08/29/17 06:59 06:59 06:59 Intake Total 1793 750 20 Output Total 20 Balance 1793 750 0 Weight 60.4 kg 60.2 kg General appearance: PRESENT: no acute distress Neck exam: PRESENT: lymphadenopathy Respiratory exam: PRESENT: clear to auscultation judi Cardiovascular exam: PRESENT: +S1, +S2 GI/Abdominal exam: PRESENT: normal bowel sounds, soft Neurological exam: PRESENT: alert, awake, oriented to person, oriented to place , oriented to time, oriented to situation, CN II-XII grossly intact. ABSENT: motor sensory deficit Results Laboratory Results: 08/28/17 06:17 08/28/17 08/28/17 06:17 12:15 WBC 5.6 RBC 4.36 Hgb 13.4 Hct 39.1 MCV 90 MCH 30.8 MCHC 34.3 RDW 15.1 H Plt Count 108 L Seg Neutrophils % 47.2 Lymphocytes % 39.5 Monocytes % 7.3 Eosinophils % 5.5 Basophils % 0.5 Absolute Neutrophils 2.6 Absolute Lymphocytes 2.2 Absolute Monocytes 0.4 Absolute Eosinophils 0.3 Absolute Basophils 0.0 Blood Type A POSITIVE Antibody Screen NEGATIVE 08/27/17 06:50 Clean Catch Midstream Urine Culture - Final Mixed Urogenital Vivien 08/26/17 11:10 Troponin I < 0.012 Impressions: Chest X-Ray 08/26/17 01:43 IMPRESSION: Mild chronic interstitial lung disease pattern. Abdomen/Pelvis CTA 08/26/17 04:42 IMPRESSION: 1. Moderate lymphadenopathy involves the right hilum, mediastinum, upper abdomen, and retroperitoneum. Moderate splenomegaly. Infectious, inflammatory, neoplastic processes are in the differential diagnosis. 2. A 3 cm diameter abdominal aortic aneurysm. Recommended follow-up: Every three years. 3. Common bile duct diameter is 1.1 cm. Consider laboratory/sonographic correlation. 4. Pulmonary arterial hypertension pattern. No evidence of pulmonary embolus. 5. Mild small bowel ileus. Chest/Abdomen CTA 08/26/17 04:42 IMPRESSION: 1. Moderate lymphadenopathy involves the right hilum, mediastinum, upper abdomen, and retroperitoneum. Moderate splenomegaly. Infectious, inflammatory, neoplastic processes are in the differential diagnosis. 2. A 3 cm diameter abdominal aortic aneurysm. Recommended follow-up: Every three years. 3. Common bile duct diameter is 1.1 cm. Consider laboratory/sonographic correlation. 4. Pulmonary arterial hypertension pattern. No evidence of pulmonary embolus. 5. Mild small bowel ileus. Abdomen MRI 08/27/17 00:00 IMPRESSION: NORMAL HEPATOBILIARY SYSTEM. NO STONES OR COMMON DUCT ABNORMALITIES. TRACE FREE FLUID IN THE RIGHT UPPER QUADRANT. Abdomen Ultrasound 08/27/17 00:00 IMPRESSION: 1. DILATED COMMON BILE DUCT, MEASURING 1.3 CM. ON THE PREVIOUS MRCP THE MEASUREMENT WAS 8 TO 9 MM. ERCP MAY BE NECESSARY FOR FURTHER EVALUATION. 2. ABDOMINAL AORTA UPPER LIMITS OF NORMAL IN SIZE. 3. NO OTHER SIGNIFICANT FINDINGS. NO GALLSTONES VISUALIZED. Assessment & Plan - Diagnosis (1) Lymphadenopathy Is this a current diagnosis for this admission?: Yes - Plan Summary Plan Summary: For cervical lymph node biopsy today. MRCP did not reveal any biliary abnormalities
--- NOTE | 2017-08-28 14:10 | Operative Report ---
Operative Report DATE OF SURGERY: 08/28/17 PREOPERATIVE DIAGNOSIS: Lymphadenopathy POSTOPERATIVE DIAGNOSIS: Lymphadenopathy OPERATION: Right cervical lymph node biopsy SURGEON: NAVDEEP NOLASCO ANESTHESIA: GA TISSUE REMOVED OR ALTERED: right cervical lymph nodes COMPLICATIONS: none ESTIMATED BLOOD LOSS: 50 ml INTRAOPERATIVE FINDINGS: right anterior supraclavicular cervical lymh nodes PROCEDURE: The patient was brought to the operating room and placed on the operating table. General endotracheal anesthesia was administered and she was positioned supine with both arms tucked by her side. Bilateral upper chest, neck and chin were prepped with chloraprep and sterile drapes laid. Under sterile aseptic conditions, a skin crease incision was made over the right anterior supraclavicular area and dissection carried down to the deep fascial layer with the lymph nodes. The external jugular vein was knicked during the dissection and had to be ligated. The fatty tissue with the lymph nodes was dissected out and sent off to pathology as frozen section. The presence of lymph nodes was confirmed by the pathologist. The wound was closed in layers with 3-0 vicryl, simple interrupted stitches to the subcutaneous layer and 4-0 monocryl, running subcuticular stitch to the skin. The wound was cleaned, infiltrated with local anesthesia, a 1:1 mixture of 1% lidocaine and 0.25% bupivacaine; it was dressed with steristrips, 4x4 and tape. The patient tolerated the procedure well, she was extubated in the operating room and taken to the PACU in stable condition.
--- NOTE | 2017-08-28 16:53 | PDOC PROGRESS REPORT ---
Subjective Progress Note for:: 08/28/17 Subjective:: The patient is a 56 year old female with no known past medical history; pt has not had routine health care in several decades who was admitted on 08/26/17 for lymphadenopathy, hypertension, and tachycardia. The patient is seen on morning rounds with family members present. She is resting comfortably on room air. She is scheduled to have her lymph node biopsy completed at 11:00 today. She denies, dizziness, chest pain, palpitations, dyspnea, orthopnea, abdominal pain, nausea vomiting diarrhea, leg edema. Overall, she is feeling much better today. She has no other questions or concerns at this time. Reason For Visit: DYSPNEA Physical Exam Vital Signs: Temp Pulse Resp BP Pulse Ox 97.9 F 73 16 133/67 H 98 08/28/17 15:30 08/28/17 15:30 08/28/17 15:30 08/28/17 15:30 08/28/17 15:30 Intake & Output 08/27/17 08/28/17 08/29/17 06:59 06:59 06:59 Intake Total 1793 750 620 Output Total 45 Balance 1793 750 575 Weight 60.4 kg 60.2 kg General appearance: PRESENT: no acute distress, well-developed, well-nourished Head exam: PRESENT: atraumatic, normocephalic Eye exam: PRESENT: conjunctiva pink, EOMI, PERRLA. ABSENT: scleral icterus Ear exam: PRESENT: normal external ear exam Mouth exam: PRESENT: moist, tongue midline Teeth exam: PRESENT: edentulous, poor dentation Neck exam: ABSENT: carotid bruit, JVD, lymphadenopathy, thyromegaly Respiratory exam: PRESENT: clear to auscultation judi, symmetrical, unlabored. ABSENT: rales, rhonchi, wheezes Cardiovascular exam: PRESENT: RRR, +S1, +S2. ABSENT: diastolic murmur, rubs, systolic murmur Pulses: PRESENT: normal dorsalis pedis pul Vascular exam: PRESENT: normal capillary refill GI/Abdominal exam: PRESENT: normal bowel sounds, soft. ABSENT: distended, guarding, mass, organolmegaly, rebound, tenderness Rectal exam: PRESENT: deferred Extremities exam: PRESENT: full ROM, pedal edema - Trace BLE edema. ABSENT: calf tenderness, clubbing Neurological exam: PRESENT: alert, awake, oriented to person, oriented to place , oriented to time, oriented to situation, CN II-XII grossly intact. ABSENT: motor sensory deficit Psychiatric exam: PRESENT: appropriate affect, normal mood. ABSENT: homicidal ideation, suicidal ideation Skin exam: PRESENT: dry, intact, warm. ABSENT: cyanosis, rash Results Laboratory Results: 08/28/17 06:17 08/28/17 08/28/17 06:17 12:15 WBC 5.6 RBC 4.36 Hgb 13.4 Hct 39.1 MCV 90 MCH 30.8 MCHC 34.3 RDW 15.1 H Plt Count 108 L Seg Neutrophils % 47.2 Lymphocytes % 39.5 Monocytes % 7.3 Eosinophils % 5.5 Basophils % 0.5 Absolute Neutrophils 2.6 Absolute Lymphocytes 2.2 Absolute Monocytes 0.4 Absolute Eosinophils 0.3 Absolute Basophils 0.0 Blood Type A POSITIVE Antibody Screen NEGATIVE 08/27/17 06:50 Clean Catch Midstream Urine Culture - Final Mixed Urogenital Rashida 08/26/17 11:10 Troponin I < 0.012 Impressions: Chest X-Ray 08/26/17 01:43 IMPRESSION: Mild chronic interstitial lung disease pattern. Abdomen/Pelvis CTA 08/26/17 04:42 IMPRESSION: 1. Moderate lymphadenopathy involves the right hilum, mediastinum, upper abdomen, and retroperitoneum. Moderate splenomegaly. Infectious, inflammatory, neoplastic processes are in the differential diagnosis. 2. A 3 cm diameter abdominal aortic aneurysm. Recommended follow-up: Every three years. 3. Common bile duct diameter is 1.1 cm. Consider laboratory/sonographic correlation. 4. Pulmonary arterial hypertension pattern. No evidence of pulmonary embolus. 5. Mild small bowel ileus. Chest/Abdomen CTA 08/26/17 04:42 IMPRESSION: 1. Moderate lymphadenopathy involves the right hilum, mediastinum, upper abdomen, and retroperitoneum. Moderate splenomegaly. Infectious, inflammatory, neoplastic processes are in the differential diagnosis. 2. A 3 cm diameter abdominal aortic aneurysm. Recommended follow-up: Every three years. 3. Common bile duct diameter is 1.1 cm. Consider laboratory/sonographic correlation. 4. Pulmonary arterial hypertension pattern. No evidence of pulmonary embolus. 5. Mild small bowel ileus. Abdomen MRI 08/27/17 00:00 IMPRESSION: NORMAL HEPATOBILIARY SYSTEM. NO STONES OR COMMON DUCT ABNORMALITIES. TRACE FREE FLUID IN THE RIGHT UPPER QUADRANT. Abdomen Ultrasound 08/27/17 00:00 IMPRESSION: 1. DILATED COMMON BILE DUCT, MEASURING 1.3 CM. ON THE PREVIOUS MRCP THE MEASUREMENT WAS 8 TO 9 MM. ERCP MAY BE NECESSARY FOR FURTHER EVALUATION. 2. ABDOMINAL AORTA UPPER LIMITS OF NORMAL IN SIZE. 3. NO OTHER SIGNIFICANT FINDINGS. NO GALLSTONES VISUALIZED. Assessment & Plan - Diagnosis (1) Lymphadenopathy Is this a current diagnosis for this admission?: Yes Plan: Lymphadenopathy noted to the right hilum, mediastinum, upper abdomen, and retroperitoneal noted on CTA of unknown etiology; concerning for infectious, inflammatory, neoplastic process. The patient denies recent acute illnesses. LDH is elevated to 718 Blood cultures: No growth at 24 hours Urine culture: Normal rashida HIV screening is negative. Hepatitis C positive. Hep A/B negative. Oncology has been consulted; appreciate their assistance. Primary plan per Oncology. Surgery has been consulted for lymph node biopsy and for today. I did speak with Dr. Keller, who states that following the biopsy the patient can be discharged from her perspective. To follow-up with her clinic Thursday or of next week. (2) Splenomegaly Is this a current diagnosis for this admission?: Yes Plan: We will consult hematology/oncology; appreciate their evaluation and recommendations. (3) Ileus Is this a current diagnosis for this admission?: Yes Plan: Resolved. Mild small bowel ileus noted by CTA. Patient is advanced to a clear liquid diet following biopsy completed earlier today. She is tolerating clear liquids without nausea or vomiting. She does report she is passing flatus and has had a bowel movement. (4) Common bile duct dilation Is this a current diagnosis for this admission?: Yes Plan: Noted by CTA of the abdomen. The patient has generalized abdominal pain that is not appreciably worsened by palpation. She does have slight nausea and a small bowel ileus. Bilirubin is mildly elevated, AST 71, remaining LFTs are normal. Amylase and lipase are normal. MRCP revealed slight right upper quadrant fluid, but is otherwise benign. Abdominal ultrasound demonstrated the same common bile duct dilatation but was unremarkable otherwise. Surgery has been consulted; appreciate their evaluation and recommendations. (5) Tachycardia Is this a current diagnosis for this admission?: Yes Plan: Resolved. Serial troponins are negative Thyroid panel is essentially normal. Blood and urine cultures as above. No obvious indication of an infectious process and so hold on antibiotic therapies at this time. Patient has been admitted to [facility] on continuous cardiac telemetry Pt medications have been adjusted; currently on Toporol XL 25mg BID, amlodipine 5 mg daily, and lisinopril 10 mg daily. (6) Dyspnea Is this a current diagnosis for this admission?: Yes Plan: Improved; likely was related to hypertension and tachycardia. Serial troponins are negative Chest x-ray negative for infiltrate. No pulmonary embolus on CTA. Echocardiogram demonstrated a low normal LVEF with mild diastolic dysfunction. ProBNP is 227 The patient has been admitted to [facility] on continuous cardiac telemetry. Supplemental oxygen as needed to maintain oxygen saturations greater than 90% Duonebs as needed. Likely a component of COPD, therefore have added Symbicort Continue to monitor closely. (7) Hypertension Is this a current diagnosis for this admission?: Yes Plan: Much improved. Continue Toporol XL 25mg BID, amlodipine 5 mg daily, and lisinopril 10 mg daily. IV hydralazine as needed. We will continue to monitor and adjust medications as necessary. (8) Tobacco dependence Is this a current diagnosis for this admission?: Yes Plan: Tobacco cessation is encouraged. Nicotine replacement therapy is offered. (9) HCV antibody positive Is this a current diagnosis for this admission?: Yes Plan: I spoke with Dr. Stevenson who will be happy to see the patient for follow-up in his clinic after discharge. We will order HCV RNA quantitative with reflex genotype and HCV fibrosure per his recommendations. (10) Postoperative pain Is this a current diagnosis for this admission?: Yes Plan: Oxycodone 5 mg every 4 hours as needed. Fentanyl 25 mcg IV 4 hours as needed for breakthrough pain. - Time Time Spent with patient: 25-34 minutes Medications reviewed and adjusted accordingly: Yes Anticipated discharge: Home Within: within 24 hours - Plan Summary Plan Summary: Patient will be stable for discharge once able to tolerate p.o. and pain is relatively well-controlled. Anticipate discharge early tomorrow morning.
[2017-08-28] MEDS: ZOLPIDEM TARTRATE 5 MG TABLET PO PRN (22:37)
[2017-08-29] MEDS: OXYCODONE HCL IR 5 MG TABLET PO PRN ×3 (01:23→13:30)
[2017-08-29] MEDS: HEPARIN SOD (PORCINE) 5,000 UNIT/ML 1 ML SYRINGE SUBCUT SCH (05:11)
[2017-08-29] MEDS: GABAPENTIN 100 MG CAPSULE PO SCH (05:16)
[2017-08-29 06:58] LABS: HEMATOCRIT 35.7 % (36.0-47.0); HEMOGLOBIN 12.4 g/dL (12.0-15.5); MEAN CORPUSCULAR HEMOGLOBIN 31.1 pg (27.0-33.4); MEAN CORPUSCULAR HGB CONC 34.7 g/dL (32.0-36.0); MEAN CORPUSCULAR VOLUME 90 fl (80-97); PLATELET COUNT 131 10^3/uL (150-450); RED BLOOD COUNT 3.98 10^6/uL (3.72-5.28); RED CELL DISTRIBUTION WIDTH 15.3 % (11.5-14.0); WHITE BLOOD COUNT 7.5 10^3/uL (4.0-10.5)
[2017-08-29] MEDS: AMLODIPINE BESYLATE 5 MG TABLET PO SCH (09:28)
[2017-08-29] MEDS: LISINOPRIL 10 MG TABLET PO SCH (09:28)
[2017-08-29] MEDS: METOPROLOL SUCCINATE 25 MG TAB.SR.24H PO SCH (09:28)
[2017-08-29] MEDS: FAMOTIDINE 20 MG TABLET PO SCH (09:29)
[2017-08-29] MEDS: ASPIRIN 81 MG TABLET, ENT COATED PO SCH (09:29)
[2017-08-29] MEDS: DOCUSATE SODIUM 100 MG CAPSULE PO SCH (09:29)
[2017-08-29] MEDS: FUROSEMIDE INJ/PF 20 MG/2 ML SDV IV SCH (09:32)
[2017-08-29] MEDS: BUDESONIDE/FORMOTEROL 160-4.5 MCG 60 PUFF/6 GM MDI IH SCH (09:32)
--- NOTE | 2017-08-29 10:33 | PDOC PROGRESS REPORT ---
Subjective Progress Note for:: 08/29/17 Subjective:: no c/o Reason For Visit: DYSPNEA Physical Exam Vital Signs: Temp Pulse Resp BP Pulse Ox 98.8 F 80 12 126/76 H 94 08/29/17 07:04 08/29/17 07:04 08/29/17 07:04 08/29/17 07:04 08/29/17 07:04 Intake & Output 08/28/17 08/29/17 08/30/17 06:59 06:59 06:59 Intake Total 750 670 Output Total 45 Balance 750 625 Weight 60.2 kg 60.1 kg General appearance: PRESENT: no acute distress Neck exam: PRESENT: full ROM, tenderness - on the right supraclavicular area, other - right wound c/d/i, no hematoma or cellultiits Results Laboratory Results: 08/29/17 06:18 08/28/17 08/29/17 12:15 06:18 WBC 7.5 RBC 3.98 Hgb 12.4 Hct 35.7 L MCV 90 MCH 31.1 MCHC 34.7 RDW 15.3 H Plt Count 131 L Blood Type A POSITIVE Antibody Screen NEGATIVE 08/27/17 06:50 Clean Catch Midstream Urine Culture - Final Mixed Urogenital Vivien 08/26/17 11:10 Troponin I < 0.012 Impressions: Chest X-Ray 08/26/17 01:43 IMPRESSION: Mild chronic interstitial lung disease pattern. Abdomen/Pelvis CTA 08/26/17 04:42 IMPRESSION: 1. Moderate lymphadenopathy involves the right hilum, mediastinum, upper abdomen, and retroperitoneum. Moderate splenomegaly. Infectious, inflammatory, neoplastic processes are in the differential diagnosis. 2. A 3 cm diameter abdominal aortic aneurysm. Recommended follow-up: Every three years. 3. Common bile duct diameter is 1.1 cm. Consider laboratory/sonographic correlation. 4. Pulmonary arterial hypertension pattern. No evidence of pulmonary embolus. 5. Mild small bowel ileus. Chest/Abdomen CTA 08/26/17 04:42 IMPRESSION: 1. Moderate lymphadenopathy involves the right hilum, mediastinum, upper abdomen, and retroperitoneum. Moderate splenomegaly. Infectious, inflammatory, neoplastic processes are in the differential diagnosis. 2. A 3 cm diameter abdominal aortic aneurysm. Recommended follow-up: Every three years. 3. Common bile duct diameter is 1.1 cm. Consider laboratory/sonographic correlation. 4. Pulmonary arterial hypertension pattern. No evidence of pulmonary embolus. 5. Mild small bowel ileus. Abdomen MRI 08/27/17 00:00 IMPRESSION: NORMAL HEPATOBILIARY SYSTEM. NO STONES OR COMMON DUCT ABNORMALITIES. TRACE FREE FLUID IN THE RIGHT UPPER QUADRANT. Abdomen Ultrasound 08/27/17 00:00 IMPRESSION: 1. DILATED COMMON BILE DUCT, MEASURING 1.3 CM. ON THE PREVIOUS MRCP THE MEASUREMENT WAS 8 TO 9 MM. ERCP MAY BE NECESSARY FOR FURTHER EVALUATION. 2. ABDOMINAL AORTA UPPER LIMITS OF NORMAL IN SIZE. 3. NO OTHER SIGNIFICANT FINDINGS. NO GALLSTONES VISUALIZED. Assessment & Plan - Diagnosis (1) Lymphadenopathy Is this a current diagnosis for this admission?: Yes - Plan Summary Plan Summary: A/ S/P right supraclavicular LN biopsy wound c/d/i P/ Will sign off patient to return to [facility] Surgery Office (Dr. Christianson) in 1 week after discharge
[2017-08-29 13:07] VITALS: BP 122/70
--- NOTE | 2017-08-30 12:29 | PDOC DISCHARGE SUMMARY ---
General - Admit/Disc Date/PCP Admission Date/Primary Care Provider: 08/26/17 07:44 Discharge Date: 08/29/17 - Discharge Diagnosis (1) Lymphadenopathy Is this a current diagnosis for this admission?: Yes Summary: Concerning for lymphoma; Dr. Keller was consulted. Patient has undergone a cervical lymph node biopsy. (2) Splenomegaly Is this a current diagnosis for this admission?: Yes (3) Ileus Is this a current diagnosis for this admission?: Yes Summary: Resoled; pt tolerating regular diet at time at discharge. (4) Common bile duct dilation Is this a current diagnosis for this admission?: Yes Summary: MRCP revealed normal hepatobiliary system. No stones or common duct abnormalities. Trace free fluid in the right upper quadrant. Abdominal ultrasound: Dilatated common bile duct, measuring 1.3 cm. Amylase and lipase were normal. (5) Tachycardia Is this a current diagnosis for this admission?: Yes Summary: Resolved. The patient is discharged on amlodipine, lisinopril, and metoprolol. (6) Dyspnea Is this a current diagnosis for this admission?: Yes Summary: Improved. The patient is discharged on Symbicort. Smoking cessation is strongly encouraged. NicoDerm prescriptions are provided. (7) Hypertension Is this a current diagnosis for this admission?: Yes Summary: Improved with amlodipine, lisinopril, and metoprolol. (8) Tobacco dependence Is this a current diagnosis for this admission?: Yes Summary: Smoking cessation is encouraged. Prescription for NicoDerm is provided. (9) HCV antibody positive Is this a current diagnosis for this admission?: Yes Summary: The patient is referred to Dr. Alexandre who will be happy to see her as an outpatient. At time of discharge, HCV guant, Genotype and fibrosure are pending. (10) Postoperative pain Is this a current diagnosis for this admission?: Yes Summary: The patient underwent a incisional cervical lymph node biopsy day prior to discharge. She is educated on wound care and provided a small prescription for oxycodone as needed pain. - Additional Information Resuscitation Status: Full Code Discharge Diet: Regular Discharge Activity: Activity As Tolerated, Balance Activity w/Rest Prescriptions: Amlodipine Besylate [Norvasc 5 mg Tablet] 5 mg PO DAILY #30 tablet Aspirin [Ecotrin 81 mg EC Tablet] 81 mg PO DAILY #30 tabec Budesonide/Formoterol Fumarate [Symbicort HFA 160-4.5 mcg Inhaler 6 gm] 2 puff IH Q12 #1 inhaler Famotidine [Pepcid 20 mg Tablet] 20 mg PO Q12 #30 tablet Lisinopril [Prinivil 10 mg Tablet] 10 mg PO DAILY #30 tablet Lorazepam [Ativan 0.5 mg Tablet] 0.5 mg PO Q8HP PRN #6 tablet PRN Reason: Metoprolol Succinate [Toprol Xl 25 mg Tab.sr] 25 mg PO Q12 #60 tab.sr.24h Nicotine [Nicoderm 14 mg/24 Hr Transdermal Patch] 1 each TD DAILYP PRN #14 patch.td24 PRN Reason: Oxycodone HCl [Oxy-Ir 5 mg Tablet] 5 mg PO Q4HP PRN #18 tablet PRN Reason: Home Medications: Acetaminophen [Tylenol 325 mg Tablet] 650 mg PO Q4HP PRN tablet 08/29/17 Amlodipine Besylate [Norvasc 5 mg Tablet] 5 mg PO DAILY #30 tablet 08/29/17 Aspirin [Ecotrin 81 mg EC Tablet] 81 mg PO DAILY #30 tabec 08/29/17 Budesonide/Formoterol Fumarate [Symbicort HFA 160-4.5 mcg Inhaler 6 gm] 2 puff IH Q12 #1 inhaler 08/29/17 Famotidine [Pepcid 20 mg Tablet] 20 mg PO Q12 #30 tablet 08/29/17 Lisinopril [Prinivil 10 mg Tablet] 10 mg PO DAILY #30 tablet 08/29/17 Lorazepam [Ativan 0.5 mg Tablet] 0.5 mg PO Q8HP PRN #6 tablet 08/29/17 Metoprolol Succinate [Toprol Xl 25 mg Tab.sr] 25 mg PO Q12 #60 tab.sr.24h Nicotine [Nicoderm 14 mg/24 Hr Transdermal Patch] 1 each TD DAILYP PRN #14 patch.td24 08/29/17 Oxycodone HCl [Oxy-Ir 5 mg Tablet] 5 mg PO Q4HP PRN #18 tablet 08/29/17 History of Present Illness History of Present Illness: FRANKLIN SOTO is a 56 year old female with no known past medical history secondary to poor healthcare access; the patient states that she has never had routine health care services. The patient presented to the emergency department with a complaint of dyspnea and bilateral lower leg edema that have been progressively worsening over the last 5-6 months. She states that her symptoms have significantly worsened since June when she was treated for pneumonia as an outpatient after a visit to the emergency department with no care follow-up afterwards. She states that since that time she has developed discomfort with breathing especially to the diaphragm area, fatigue, and generalized body aches. She denies fever, chills, typical cardiac chest pain symptoms, palpitations, orthopnea, abdominal pain, vomiting and diarrhea. She does endorse generalized abdominal discomfort. Additionally, the patient denies weight loss. Evaluation in the emergency department revealed tachycardia with heart rate initially in the 120s, hypertension 170/110. Silas workup was essentially normal other than an elevated d-dimer and bilirubin. Chest x-ray showed mild chronic interstitial lung disease. Follow-up CTA of the chest and abdomen demonstrated moderate lymphadenopathy to the mediastinum, upper abdomen, retroperitoneum with splenomegaly, a 3 cm AAA, dilated common bile duct to 1.1 cm, pulmonary atrial hypertension, and a mild small bowel ileus. The patient was referred to the hospitalist service for admission and continued evaluation of the undifferentiated tachycardia, hypertension, dyspnea, and abnormal CTA findings. Hospital Course Hospital Course: The patient was admitted on 08/26/17 for lymphadenopathy, hypertension, and tachycardia. CTA of the chest and abdomen revealed lymphadenopathy to the right hilum, mediastinum, upper abdomen, retroperitoneal base. LDH was elevated to 718. Blood and urine cultures were negative. HIV screening is negative. Hepatitis a and B were negative. Hepatitis C is positive. Follow- up imaging including abdominal ultrasound and MRCP to evaluate the dilated common bile duct, no stones were found. Elase and lipase were negative. Oncology was consulted; Dr. Keller will follow the patient in the office. She did undergo an incisional lymph node biopsy; pathology results are pending at this time. The patient was incidentally found to have a small bowel ileus which has resolved. At time of discharge, the patient is tolerating a regular diet and having bowel movements. The patient was noted to have hypertension with tachycardia. Thyroid panel is normal, serial troponins were negative. She was placed on parole XL 25 mg twice daily, amlodipine 5 mg daily, and lisinopril 10 mg daily with appropriate response of both heart rate and blood pressure. The patient reported subjective dyspnea which has improved. Chest x-ray was negative for infiltrate, CTA negative for pulmonary embolus, echocardiogram demonstrated a low normal LVEF. The patient is a continuous tobacco smoker. Smoking cessation was encouraged and nicotine replacement therapy was provided. She likely has a component of COPD and therefore was started on Symbicort. She is maintaining oxygen saturations while ambulatory on room air and reports improvement of symptoms. On day of discharge, the patient is in stable condition. She is tolerating a regular diet. Her pain is well controlled with oxycodone. She is to follow-up with Dr. Keller (Oncology) to review biopsy results next week, Dr. Alexandre ( gastroenterology) for treatment of HCV, Dr. Christianson (Surgeon) for wound check, and the [facility] to establish with a primary care provider. Physical Exam Vital Signs: Temp Pulse Resp BP Pulse Ox 98.8 F 80 16 122/70 94 08/29/17 12:59 08/29/17 12:59 08/29/17 12:59 08/29/17 12:59 08/29/17 12:59 Intake & Output 08/29/17 08/30/17 08/31/17 06:59 06:59 06:59 Intake Total 670 Output Total 45 Balance 625 Weight 60.1 kg General appearance: PRESENT: no acute distress, thin, well-developed, well- nourished Head exam: PRESENT: atraumatic, normocephalic Eye exam: PRESENT: conjunctiva pink, EOMI, PERRLA. ABSENT: scleral icterus Ear exam: PRESENT: normal external ear exam Mouth exam: PRESENT: moist, tongue midline Teeth exam: PRESENT: edentulous, poor dentation Neck exam: ABSENT: carotid bruit, JVD, lymphadenopathy, thyromegaly Respiratory exam: PRESENT: clear to auscultation judi, symmetrical, unlabored. ABSENT: rales, rhonchi, wheezes Cardiovascular exam: PRESENT: RRR, +S1, +S2. ABSENT: diastolic murmur, rubs, systolic murmur Pulses: PRESENT: normal dorsalis pedis pul Vascular exam: PRESENT: normal capillary refill GI/Abdominal exam: PRESENT: normal bowel sounds, soft. ABSENT: distended, guarding, mass, organolmegaly, rebound, tenderness Rectal exam: PRESENT: deferred Extremities exam: PRESENT: full ROM. ABSENT: calf tenderness, clubbing, pedal edema Neurological exam: PRESENT: alert, awake, oriented to person, oriented to place , oriented to time, oriented to situation, CN II-XII grossly intact. ABSENT: motor sensory deficit Psychiatric exam: PRESENT: appropriate affect, normal mood. ABSENT: homicidal ideation, suicidal ideation Skin exam: PRESENT: dry, intact, warm. ABSENT: cyanosis, rash Results Laboratory Results: 08/29/17 06:18 08/26/17 11:10 Troponin I < 0.012 Impressions: Chest X-Ray 08/26/17 01:43 IMPRESSION: Mild chronic interstitial lung disease pattern. Abdomen/Pelvis CTA 08/26/17 04:42 IMPRESSION: 1. Moderate lymphadenopathy involves the right hilum, mediastinum, upper abdomen, and retroperitoneum. Moderate splenomegaly. Infectious, inflammatory, neoplastic processes are in the differential diagnosis. 2. A 3 cm diameter abdominal aortic aneurysm. Recommended follow-up: Every three years. 3. Common bile duct diameter is 1.1 cm. Consider laboratory/sonographic correlation. 4. Pulmonary arterial hypertension pattern. No evidence of pulmonary embolus. 5. Mild small bowel ileus. Chest/Abdomen CTA 08/26/17 04:42 IMPRESSION: 1. Moderate lymphadenopathy involves the right hilum, mediastinum, upper abdomen, and retroperitoneum. Moderate splenomegaly. Infectious, inflammatory, neoplastic processes are in the differential diagnosis. 2. A 3 cm diameter abdominal aortic aneurysm. Recommended follow-up: Every three years. 3. Common bile duct diameter is 1.1 cm. Consider laboratory/sonographic correlation. 4. Pulmonary arterial hypertension pattern. No evidence of pulmonary embolus. 5. Mild small bowel ileus. Abdomen MRI 08/27/17 00:00 IMPRESSION: NORMAL HEPATOBILIARY SYSTEM. NO STONES OR COMMON DUCT ABNORMALITIES. TRACE FREE FLUID IN THE RIGHT UPPER QUADRANT. Abdomen Ultrasound 08/27/17 00:00 IMPRESSION: 1. DILATED COMMON BILE DUCT, MEASURING 1.3 CM. ON THE PREVIOUS MRCP THE MEASUREMENT WAS 8 TO 9 MM. ERCP MAY BE NECESSARY FOR FURTHER EVALUATION. 2. ABDOMINAL AORTA UPPER LIMITS OF NORMAL IN SIZE. 3. NO OTHER SIGNIFICANT FINDINGS. NO GALLSTONES VISUALIZED. Qualifiers - * PATEINT BEING DISCHARGED WITH ANY OF THE FOLLOWING DIAGNOSIS?: No Plan Discharge Plan: Follow-up with Dr. Keller on or Thursday of next week. Follow-up with Dr. Christianson in 1 week. Follow-up with Dr. Stevenson within 1-2 weeks. Follow-up with [facility] in 1 week. Time Spent: Greater than 30 Minutes
[2017-09-01 10:38] LABS: HEPATITIS C QUANTITATION 6720000 IU/mL (.)
[2017-09-01 10:40] LABS: HEPATITIS C LOG10 6.827 (.)
[2017-09-02 05:40] LABS: HCV FIBROSURE ALT P5P 41 IU/L (0-40); HCV FIBROSURE GGT 37 IU/L (0-60); HCV FIBROSURE HAPTOGLOBIN < 10 mg/dL (34-200); NECROINFLAM ACTIVITY GRADE A1-A2 (.); NECROINFLAMM ACTIVITY SCORE 0.42 (0.00-0.17)
== END 2017-08-29 13:48 | disposition home or self-care (01) ==
LOC: ER 01:21 → INTOOBSV 07:44 → EH 07:44 → 3S 10:32
PROVIDERS: ADMIT Family Medicine; ATTEND Family Medicine
PROC: HZ31ZZZ Individual Counseling for Substance Abuse Treatment, Behavioral (ICD-10-PCS; principal; 2017-08-26)
PROC: 07B10ZX Excision of Right Neck Lymphatic, Open Approach, Diagnostic (ICD-10-PCS; 2017-08-28)
DX: R59.0 Localized enlarged lymph nodes (principal); R16.1 Splenomegaly, not elsewhere classified; K56.7 Ileus, unspecified; K83.8 Other specified diseases of biliary tract; R00.0 Tachycardia, unspecified; R06.00 Dyspnea, unspecified; F17.210 Nicotine dependence, cigarettes, uncomplicated; R76.8 Other specified abnormal immunological findings in serum; G89.18 Other acute postprocedural pain; R60.0 Localized edema; R53.83 Other fatigue; D69.6 Thrombocytopenia, unspecified; I71.4 Abdominal aortic aneurysm, without rupture; J84.9 Interstitial pulmonary disease, unspecified; R10.13 Epigastric pain; M54.9 Dorsalgia, unspecified; R11.0 Nausea; R10.84 Generalized abdominal pain; R20.2 Paresthesia of skin; I51.89 Other ill-defined heart diseases; F41.9 Anxiety disorder, unspecified; R05 Cough; Z87.01 Personal history of pneumonia (recurrent); I27.20 Pulmonary hypertension, unspecified; Z82.49 Family history of ischemic heart disease and other diseases of the circulatory system; Z80.3 Family history of malignant neoplasm of breast; Z80.0 Family history of malignant neoplasm of digestive organs
CPT/HCPCS: 93005; 96376; 99285; 96361; 96374; 96375; 82172; 82247; 82977; 83010; 83883; 84460; 86900; 86901; 36415 ×4; 87040; 87086; 84439; 82553; 88185 ×15; 88184; 86850; 82150; 82550; 83615; 83690; 84443; 85025 ×3; 85027; 85652; 80053; 81001; 84484; 87522; 86701; 84481; 83036; 85379; 82803; 80061; 88233; 88262; 80074; 83880; 88305 ×2; 93306; 74181; 71045; 76705; 71275; 74174; 93010; 99406; 38510; G0378 ×5; J2250; J1644 ×3; J0690; J3490 ×8; J3010 ×2; J1940 ×3; J0360; J2765; J2370; J0330; J2405 ×2; J7030; J2704; J7620; 320

== ENCOUNTER 2017-09-07 17:25 | Emergency (ER) | payer SELFPAY ==
--- NOTE | 2017-09-07 20:04 | ER Document Report ---
ED General - General Chief Complaint: Post Surgical Pain Stated Complaint: NECK PAIN Time Seen by Provider: 09/07/17 18:56 Mode of Arrival: Ambulatory Information source: Patient Notes: Patient states she had a biopsy done 10 days ago for some swollen lymph nodes. She states she has not received the results of the biopsy yet. She states she noticed today that the wound from the biopsy site was swollen and slightly more painful than usual. No problems speaking or swallowing. No fevers. No other significant symptoms. The pain is constant and mild. It is worse when touched and better if left alone. It is located in the right supraclavicular area. It is an aching sensation. TRAVEL OUTSIDE OF THE [place] IN LAST 30 DAYS: No - Related Data Allergies/Adverse Reactions: No Known Allergies Allergy (Verified 09/07/17 17:29) Past Medical History - Social History Smoking Status: Current Every Day Smoker Chew tobacco use (# tins/day): No Frequency of alcohol use: None Drug Abuse: None Family History: CAD, DM, Hyperlipidemia, Hypertension, Malignancy Patient has suicidal ideation: No Patient has homicidal ideation: No - Past Medical History Cardiac Medical History: Reports: Hx Hypertension Renal/ Medical History: Denies: Hx Peritoneal Dialysis Past Surgical History: Reports: Other - Skin grafts to left lower extremity as child. Dental extractions - Immunizations Hx Diphtheria, Pertussis, Tetanus Vaccination: Yes Review of Systems - Review of Systems Constitutional: denies: Chills, Fever Cardiovascular: denies: Chest pain, Palpitations Respiratory: denies: Cough, Short of breath Physical Exam - Vital signs Vitals: Temp Pulse Resp BP Pulse Ox 98.5 F 80 20 138/78 H 98 09/07/17 17:47 09/07/17 17:47 09/07/17 17:47 09/07/17 17:47 09/07/17 17:47 Interpretation: Normal - General General appearance: Appears well, Alert In distress: None - HEENT Head: Normocephalic, Atraumatic Eyes: Normal Pupils: PERRL - Respiratory Respiratory status: No respiratory distress Chest status: Nontender Breath sounds: Normal Chest palpation: Normal - Cardiovascular Rhythm: Regular Heart sounds: Normal auscultation Murmur: No - Abdominal Inspection: Normal Distension: No distension Bowel sounds: Normal Tenderness: Nontender Organomegaly: No organomegaly - Back Back: Normal, Nontender - Extremities General upper extremity: Normal inspection, Nontender, Normal color, Normal ROM , Normal temperature General lower extremity: Normal inspection, Nontender, Normal color, Normal ROM , Normal temperature, Normal weight bearing. No: Holley's sign - Neurological Neuro grossly intact: Yes Cognition: Normal Orientation: AAOx4 Hartwick Coma Scale Eye Opening: Spontaneous Hartwick Coma Scale Verbal: Oriented Shell Coma Scale Motor: Obeys Commands Shell Coma Scale Total: 15 Speech: Normal Motor strength normal: LUE, RUE, LLE, RLE Sensory: Normal - Psychological Associated symptoms: Normal affect, Normal mood - Skin Skin Temperature: Warm Skin Moisture: Dry Skin Color: Normal Irregularity with: Other - Patient has a surgical wound in the right supraclavicular area consistent with a previous biopsy of a lymph node. The incision is slightly fluctuant and mildly tender. It does not warm or erythematous. It is not indurated. It is not appear consistent with an abscess. It appears most consistent with a seroma. Course - Vital Signs Vital signs: Temp Pulse Resp BP Pulse Ox 98.5 F 80 20 138/78 H 98 09/07/17 17:47 09/07/17 17:47 09/07/17 17:47 09/07/17 17:47 09/07/17 17:47 Discharge - Discharge Clinical Impression: Seroma after procedure Condition: Stable Disposition: HOME, SELF-CARE Additional Instructions: It appears that you have a collection of bloody fluid under your wound. This is benign and will gradually be degraded by your body and reabsorbed. Please follow-up with your physician tomorrow as scheduled. Referrals: YOLANDA BARRERA MD [ACTIVE STAFF] - Follow up as needed
[2017-09-07 20:11] VITALS: BP 99/70
== END 2017-09-07 20:13 | disposition home or self-care (01) ==
LOC: ER 17:25
DX: L76.34 Postprocedural seroma of skin and subcutaneous tissue following other procedure (principal); G89.18 Other acute postprocedural pain; M54.2 Cervicalgia; Z98.890 Other specified postprocedural states; F17.200 Nicotine dependence, unspecified, uncomplicated; I10 Essential (primary) hypertension
CPT/HCPCS: 99283

== ENCOUNTER → 2018-02-03 | Outpatient (CLI) | payer OTHER ==
--- NOTE | 2018-02-03 14:42 | RADIOLOGY REPORT (SQ) ---
EXAM DESCRIPTION: CT CHEST WITHOUT COMPLETED DATE/TIME: 02/03/2018 2:16 pm REASON FOR STUDY: ENLARGED LYMPH NODES, UNSPECIFIED R59.9 ENLARGED LYMPH NODES, UNSPECIFIED COMPARISON: 08/26/2017 TECHNIQUE: CT scan performed of the chest without intravenous contrast. Images reviewed with lung, soft tissue and bone windows. Reconstructed coronal and sagittal MPR images reviewed. All images st ored on PACS. All CT scanners at this facility use dose modulation, iterative reconstruction, and/or weight based d osing when appropriate to reduce radiation dose to as low as reasonably achievable (ALARA). [facility]: Dose Right [facility]: CareDose [facility]: Dose Right [facility]: Teradose 4D [facility]: [employer] RADIATION DOSE: CT Rad equipment meets quality standard of care and radiation dose reduction techniq ues were employed. CTDIvol: 2.9 mGy. DLP: 116 mGy-cm. mGy. LIMITATIONS: No technical limitations. FINDINGS: LUNGS AND PLEURA: Paraseptal emphysema with unchanged subpleural honeycombing especially i n the middle lobe, lingula and lower lobes. No consolidation. No discrete cysts or micro nodules. No significant ground-glass attenuation. No effusions. HILAR AND MEDIASTINAL STRUCTURES: Stable mediastinal and right hilar adenopathy with the largest node right hilum about 1.5 x 2.5 cm. No progression. HEART AND VASCULAR STRUCTURES: No aneurysm. No pericardial effusion. UPPER ABDOMEN: No significant findings. Limited exam. THYROID AND OTHER SOFT TISSUES: No masses. No adenopathy. BONES: No significant finding. HARDWARE: None in the chest. OTHER: No other significant findings. IMPRESSION: UIP pattern. Stable lymphadenopathy, probably reactive. No significant change. TECHNICAL DOCUMENTATION: JOB ID: [id number] Quality ID # [id number]: Final reports with documentation of one or more dose reduction techniques (e.g., Au tomated exposure control, adjustment of the mA and/or kV according to patient size, use of iterative reconstruction technique) 2010 [employer]- All Rights Reserved Reading location - IP/workstation name: [email or web address]
== END ==
LOC: RAD 14:01
PROVIDERS: ATTEND Family Medicine
DX: R59.9 Enlarged lymph nodes, unspecified (principal)
CPT/HCPCS: 71250

== ENCOUNTER → 2018-08-03 | Outpatient (CLI) | payer OTHER ==
[2018-08-03 18:01] LABS: ABSOLUTE EOSINOPHILS # (AUTO) 0.2 10^3/uL (0.0-0.6); ABSOLUTE LYMPHOCYTES (AUTO) 2.3 10^3/uL (0.5-4.7); ABSOLUTE MONOCYTES (AUTO) 0.5 10^3/uL (0.1-1.4); ABSOLUTE NEUT (AUTO) 4.3 10^3/uL (1.7-8.2); BASOPHILS % (AUTO) 0.5 % (0-2); EOSINOPHILS % (AUTO) 3.2 % (0-6); HEMATOCRIT 39.4 % (36.0-47.0); HEMOGLOBIN 13.9 g/dL (12.0-15.5); LYMPHOCYTES % (AUTO) 31.4 % (13-45); MEAN CORPUSCULAR HEMOGLOBIN 31.5 pg (27.0-33.4); MEAN CORPUSCULAR HGB CONC 35.4 g/dL (32.0-36.0); MEAN CORPUSCULAR VOLUME 89 fl (80-97); PLATELET COUNT 151 10^3/uL (150-450); RED BLOOD COUNT 4.42 10^6/uL (3.72-5.28); RED CELL DISTRIBUTION WIDTH 13.9 % (11.5-14.0); SEGMENTED NEUTROPHILS % (AUTO) 57.9 % (42-78); TOTAL CELLS COUNTED % (AUTO) 100 %; WHITE BLOOD COUNT 7.4 10^3/uL (4.0-10.5)
[2018-08-03 18:08] LABS: INTERNATIONAL RATION (INR) 1.19; PROTHROMBIN TIME 15.7 SEC (11.4-15.4)
[2018-08-03 18:43] LABS: ALANINE AMINOTRANSFERASE 42 U/L (9-52); ALBUMIN 3.7 g/dL (3.5-5.0); ALKALINE PHOSPHATASE 95 U/L (38-126); ANION GAP 8 (5-19); ASPARTATE AMINO TRANSFERASE 82 U/L (14-36); BILIRUBIN,DIRECT 0.5 mg/dL (0.0-0.4); BILIRUBIN,TOTAL 0.8 mg/dL (0.2-1.3); BLOOD UREA NITROGEN 19 mg/dL (7-20); CALCIUM 9.1 mg/dL (8.4-10.2); CARBON DIOXIDE 28 mmol/L (22-30); CHLORIDE 104 mmol/L (98-107); GLUCOSE 112 mg/dL (75-110); POTASSIUM 4.4 mmol/L (3.6-5.0); SODIUM 139.8 mmol/L (137-145); TOTAL PROTEIN 7.8 g/dL (6.3-8.2)
[2018-08-05 06:38] LABS: HEPATITIS A AB IGM Negative (Negative); HEPATITIS B CORE AB IGM Negative (Negative); HEPATITS B SURFACE ANTIGEN Negative (Negative)
[2018-08-05 07:14] LABS: HEPATITIS C VIRUS ANTIBODY >11.0 s/co ratio (0.0-0.9)
[2018-08-06 06:39] LABS: HCV FIBROSURE ALT P5P 48 IU/L (0-40); HCV FIBROSURE GGT 35 IU/L (0-60); HCV FIBROSURE HAPTOGLOBIN 34 mg/dL (34-200); NECROINFLAM ACTIVITY GRADE A1-A2 (.); NECROINFLAMM ACTIVITY SCORE 0.45 (0.00-0.17)
[2018-08-06 10:38] LABS: HEPATITIS C QUANTITATION 2730000 IU/mL (.)
== END ==
LOC: OD 16:20
PROVIDERS: ATTEND Family Medicine
DX: B18.2 Chronic viral hepatitis C (principal)
CPT/HCPCS: 36415; 80053; 80074; 82172; 82247; 82977; 83010; 83883; 84460; 85025; 85610; 87522

== ENCOUNTER → 2018-09-16 | Outpatient (CLI) | payer OTHER ==
[2018-09-16 14:02] LABS: ABSOLUTE EOSINOPHILS # (AUTO) 0.3 10^3/uL (0.0-0.6); ABSOLUTE LYMPHOCYTES (AUTO) 1.5 10^3/uL (0.5-4.7); ABSOLUTE MONOCYTES (AUTO) 0.4 10^3/uL (0.1-1.4); ABSOLUTE NEUT (AUTO) 2.7 10^3/uL (1.7-8.2); BASOPHILS % (AUTO) 0.3 % (0-2); EOSINOPHILS % (AUTO) 5.3 % (0-6); HEMATOCRIT 36.7 % (36.0-47.0); LYMPHOCYTES % (AUTO) 31.8 % (13-45); MEAN CORPUSCULAR HEMOGLOBIN 31.9 pg (27.0-33.4); MEAN CORPUSCULAR HGB CONC 35.5 g/dL (32.0-36.0); MEAN CORPUSCULAR VOLUME 90 fl (80-97); MONOCYTES % (AUTO) 7.4 % (3-13); PLATELET COUNT 120 10^3/uL (150-450); RED BLOOD COUNT 4.09 10^6/uL (3.72-5.28); RED CELL DISTRIBUTION WIDTH 14.7 % (11.5-14.0); SEGMENTED NEUTROPHILS % (AUTO) 55.2 % (42-78); TOTAL CELLS COUNTED % (AUTO) 100 %; WHITE BLOOD COUNT 4.8 10^3/uL (4.0-10.5)
[2018-09-16 14:08] LABS: PROTHROMBIN TIME 15.8 SEC (11.4-15.4)
[2018-09-16 14:28] LABS: ALANINE AMINOTRANSFERASE 41 U/L (9-52); ALBUMIN 3.3 g/dL (3.5-5.0); ALKALINE PHOSPHATASE 88 U/L (38-126); ASPARTATE AMINO TRANSFERASE 65 U/L (14-36); BILIRUBIN,DIRECT 0.4 mg/dL (0.0-0.4); BLOOD UREA NITROGEN 13 mg/dL (7-20); CALCIUM 9.3 mg/dL (8.4-10.2); GLUCOSE 123 mg/dL (75-110); POTASSIUM 3.5 mmol/L (3.6-5.0); TOTAL PROTEIN 7.4 g/dL (6.3-8.2)
[2018-09-16 14:33] LABS: ANION GAP 5 (5-19); CARBON DIOXIDE 29 mmol/L (22-30); CHLORIDE 108 mmol/L (98-107); SODIUM 142.2 mmol/L (137-145)
[2018-09-20 09:53] LABS: HEPATITIS C VIRUS RNA QUAL NAA Positive (Negative)
== END ==
LOC: CCC 12:39
DX: B18.2 Chronic viral hepatitis C (principal)
CPT/HCPCS: 36415; 80053; 81270; 85025; 85610; 87521

== ENCOUNTER → 2018-10-19 | Outpatient (CLI) | payer OTHER ==
--- NOTE | 2018-10-19 09:11 | WOMENS IMAGING REPORT ---
EXAM DESCRIPTION: U/S ABDOMEN LIMITED COMPLETED DATE/TIME: 10/19/2018 8:24 am REASON FOR STUDY: K74.60 UNSPECIFIED CIRRHOSIS OF LIVER K74.60 UNSPECIFIED CIRRHOSIS OF LIVER COMPARISON: 08/27/2017 TECHNIQUE: Dynamic and static grayscale images acquired of the abdomen and recorded on PACS. Additio nal selected color Doppler and spectral images recorded. LIMITATIONS: None. FINDINGS: PANCREAS: No masses. Visualized pancreatic duct normal caliber. LIVER: Diffuse increased coarsened echotexture to the liver parenchyma, likely consistent with the p sergo's known history of liver disease. The liver measures 13.6 cm. The right lobe of the liver is smaller in size in the left lobe appears large. LIVER VASCULATURE: Normal directional flow of the main portal vein and hepatic veins. GALLBLADDER: No stones. The gallbladder wall is thickened and measures 5.1 mm. Gallbladder wall vinayak ma is noted. ULTRASOUND-DETECTED FAGAN'S SIGN: Negative. INTRAHEPATIC DUCTS AND COMMON DUCT: CBD measures 1.2 cm in AP diameter and is dilated (on the prior e xamination measured 1.3 cm). No filling defects. INFERIOR VENA CAVA: Normal flow. AORTA: As on the prior examination, the mid abdominal aorta is at the upper limits of normal and tarah sures 2.5 cm x 3.0 cm. The abdominal aorta is patent. RIGHT KIDNEY: The right kidney measures 10.0 x 4.1 x 5.3 cm, normal size. Normal echogenicity. No so lid or suspicious masses. No hydronephrosis. No calcifications. PERITONEAL AND RIGHT PLEURAL SPACE: Mild volume ascites in Morison's pouch(between the right hepatic lobe and right kidney). OTHER: Splenomegaly is noted, the spleen measures 15.6 cm in length. IMPRESSION: 1. Diffuse coarsened echotexture to the liver parenchyma, likely consistent with the pa edith's known history of liver disease. 2. Diffuse thickening of the gallbladder wall. Gallbladder wall edema is also noted. 3. The common bile duct is dilated, measures 1.2 cm in AP diameter, basically unchanged since the pr ior examination dated 08/27/2017. 4. Stable appearance to the mid abdominal aorta, upper limits of normal. 5. Splenomegaly. 6. Mild volume ascites in Morison's pouch(between the right hepatic lobe and right kidney). TECHNICAL DOCUMENTATION: JOB ID: [id number] [employer]- All Rights Reserved Reading location - IP/workstation name: [email or web address]
== END ==
LOC: WI 07:41
PROVIDERS: ATTEND Family Medicine
DX: K74.60 Unspecified cirrhosis of liver (principal)
CPT/HCPCS: 76705

== ENCOUNTER → 2018-12-15 | Outpatient (CLI) | payer OTHER ==
[2018-12-15 17:39] LABS: ABSOLUTE EOSINOPHILS # (AUTO) 0.3 10^3/uL (0.0-0.6); ABSOLUTE LYMPHOCYTES (AUTO) 2.4 10^3/uL (0.5-4.7); ABSOLUTE MONOCYTES (AUTO) 0.5 10^3/uL (0.1-1.4); ABSOLUTE NEUT (AUTO) 3.8 10^3/uL (1.7-8.2); BASOPHILS % (AUTO) 0.4 % (0-2); EOSINOPHILS % (AUTO) 4.8 % (0-6); HEMATOCRIT 37.5 % (36.0-47.0); HEMOGLOBIN 13.2 g/dL (12.0-15.5); LYMPHOCYTES % (AUTO) 33.6 % (13-45); MEAN CORPUSCULAR HEMOGLOBIN 31.1 pg (27.0-33.4); MEAN CORPUSCULAR HGB CONC 35.1 g/dL (32.0-36.0); MEAN CORPUSCULAR VOLUME 89 fl (80-97); MONOCYTES % (AUTO) 7.2 % (3-13); PLATELET COUNT 126 10^3/uL (150-450); RED BLOOD COUNT 4.24 10^6/uL (3.72-5.28); RED CELL DISTRIBUTION WIDTH 14.6 % (11.5-14.0); TOTAL CELLS COUNTED % (AUTO) 100 %; WHITE BLOOD COUNT 7.1 10^3/uL (4.0-10.5)
[2018-12-15 18:01] LABS: ALANINE AMINOTRANSFERASE 21 U/L (9-52); ALBUMIN 3.5 g/dL (3.5-5.0); ALKALINE PHOSPHATASE 67 U/L (38-126); ASPARTATE AMINO TRANSFERASE 24 U/L (14-36); BILIRUBIN,DIRECT 0.4 mg/dL (0.0-0.4); BILIRUBIN,TOTAL 0.7 mg/dL (0.2-1.3); TOTAL PROTEIN 6.8 g/dL (6.3-8.2)
[2018-12-19 09:36] LABS: HEPATITIS C QUANTITATION HCV Not Detected IU/mL (.)
== END ==
LOC: OD 16:38
PROVIDERS: ATTEND Family Medicine
DX: B18.2 Chronic viral hepatitis C (principal)
CPT/HCPCS: 36415; 80076; 85025; 87522

== ENCOUNTER 2019-12-19 20:58 | Emergency (ER) | payer SELFPAY ==
--- NOTE | 2019-12-19 23:58 | ER Document Report ---
ED General - General Chief Complaint: Nausea Stated Complaint: LOSS OF TASTE/NAUSEA/VOMITTING Time Seen by Provider: 12/19/19 23:27 Primary Care Provider: JACOB KNIGHT DO [Primary Care Provider] - Follow up as needed Notes: Patient is a 59-year-old female that comes to the emergency department for chief complaint of vague nausea and change in taste for the past 2 days. She denies chest pain, dizziness, nausea, vomiting, shortness of breath, cough, fever. She has been exposed to her son who is running a fever currently. No obvious sick contact otherwise recent travel. Patient has a history of smoking, COPD, hepatitis C. She denies any other complaints including abdominal pain. TRAVEL OUTSIDE OF THE [place] IN LAST 30 DAYS: No - Related Data Allergies/Adverse Reactions: No Known Allergies Allergy (Verified 09/07/17 17:29) Past Medical History - General Information source: Patient - Social History Smoking Status: Current Every Day Smoker Chew tobacco use (# tins/day): No Smoking Education Provided: Yes - <3 min Frequency of alcohol use: None Drug Abuse: None Lives with: Family Family History: CAD, DM, Hyperlipidemia, Hypertension, Malignancy Patient has homicidal ideation: No - Past Medical History Cardiac Medical History: Reports: Hx Hypertension Renal/ Medical History: Denies: Hx Peritoneal Dialysis Past Surgical History: Reports: Other - Skin grafts to left lower extremity as child. Dental extractions - Immunizations Hx Diphtheria, Pertussis, Tetanus Vaccination: Yes Review of Systems - Review of Systems Constitutional: See HPI EENT: No symptoms reported Cardiovascular: No symptoms reported Respiratory: No symptoms reported Gastrointestinal: See HPI Genitourinary: No symptoms reported Female Genitourinary: No symptoms reported Musculoskeletal: No symptoms reported Skin: No symptoms reported Hematologic/Lymphatic: No symptoms reported Neurological/Psychological: No symptoms reported Physical Exam - Vital signs Vitals: Temp Pulse Resp BP Pulse Ox 98.1 F 75 20 141/76 H 98 12/19/19 21:16 12/19/19 21:16 12/19/19 21:16 12/19/19 21:16 12/19/19 21:16 - Notes Notes: GENERAL: Alert, interacts well. No acute distress. HEAD: Normocephalic, atraumatic. EYES: Pupils equal, round, and reactive to light. Extraocular movements intact. ENT: Oral mucosa moist, tongue midline. Oropharynx unremarkable. Airway patent. Nares patent, sinuses non-tender, ear canals unremarkable, TM's intact. NECK: Full range of motion. Supple. Trachea midline. No lymphadenopathy. LUNGS: Somewhat decreased breath sounds bilaterally, no wheezes, rales, or rhonchi. No tachypnea or distress. HEART: Regular rate and rhythm. No murmur ABDOMEN: Soft, non-tender. Non-distended. EXTREMITIES: Moves all 4 extremities spontaneously. No edema, normal radial and dorsalis pedis pulses bilaterally. No cyanosis. BACK: no cervical, thoracic, lumbar midline tenderness. No saddle anesthesia, normal distal neurovascular exam. Moves all extremities in full range of motion. NEUROLOGICAL: Alert and oriented x3. Normal speech. Cranial nerves II through XII grossly intact. Strength 5/5 in all extremities. PSYCH: Normal affect, normal mood. SKIN: Warm, dry, normal turgor. No rashes or lesions noted. Course - Re-evaluation Re-evalutation: Patient is actually here with her son who is also being evaluated. She is concerned that he might have COVID-19 because he has a fever and she states that because of her vague nausea and symptoms that she wants to be evaluated. Because of her age and nonspecific nausea work-up was performed including EKG, chest x-ray, CBC, chemistry, and troponin. This was unremarkable except for slightly low glucose, patient was given food and tolerated this without difficulty. Nausea is not new for the patient. After work-up and based on her son's evaluation I did discuss potentially testing her for COVID-19 but this was not performed because of low suspicion. Very low suspicion of ACS, chest x-ray with chronic findings which were discussed, discussed smoking cessation, patient already has primary care follow-up, this patient states appreciation and states she is ready for discharge. Stable and well-appearing at time of discharge, discussed return precautions. - Vital Signs Vital signs: Temp Pulse Resp BP Pulse Ox 97.8 F 63 14 139/72 H 99 12/20/19 02:52 12/20/19 02:52 12/20/19 02:52 12/20/19 02:52 12/20/19 02:52 - Laboratory Result Diagrams: 12/19/19 23:52 12/19/19 23:52 Laboratory results interpreted by me: 12/19/19 12/19/19 23:52 23:52 Eos % (Auto) 6.3 H Est GFR (MDRD) Non-Af 56 L Glucose 69 L AST 42 H - EKG Interpretation by Me Additional EKG results interpreted by me: EKG shows sinus rhythm at a rate of 65, normal axis, no T wave inversions or ST segment changes in consecutive leads, QTC of 421 Discharge - Discharge Clinical Impression: Nausea Condition: Stable Disposition: HOME, SELF-CARE Additional Instructions: Your work-up does not show any concerning findings at this time. You do have some chronic changes in your lungs but these are not new compared to previous imaging. Stop smoking. Follow-up with primary care for additional management of your ongoing medical problems. Take Zofran if needed for nausea. Return if you worsen including chest pain, vomiting, fever, or any other concerning or wor sening symptoms. Prescriptions: Ondansetron [Zofran Odt 4 mg Tablet] 1 - 2 tab PO Q4H PRN #15 tab.rapdis PRN Reason: For Nausea/Vomiting Forms: Smoking Cessation Education Referrals: JACOB KNIGHT DO [Primary Care Provider] - Follow up as needed
--- NOTE | 2019-12-20 00:45 | RADIOLOGY REPORT (SQ) ---
EXAM DESCRIPTION: X-ray single view chest. CLINICAL HISTORY: 59 years Female, weakness, chest pain COMPARISON: 05/15/[address] performed on 02/03/2018 TECHNIQUE: Single portable x-ray view of the chest performed on 12/20/2019 at 12:23 AM FINDINGS: The lungs are well expanded. There is chronic coarsening of the interstitial lung markings most consistent with idiopathic pulmonary fibrosis. There is no evidence of a pneumothorax. No focal airspace consolidation is identified. The cardiac silhouette is normal in size and configuration. The mediastinal contours are normal. No acute osseous abnormality is identified. No focal soft tissue abnormalities are seen. Lines and tubes: None. IMPRESSION: No significant change when compared to the prior studies revealing ongoing coarsening of the interstitial lung markings most consistent with idiopathic pulmonary fibrosis.
[2019-12-20 00:46] LABS: ABSOLUTE EOSINOPHILS # (AUTO) 0.4 10^3/uL (0.0-0.6); ABSOLUTE MONOCYTES (AUTO) 0.4 10^3/uL (0.1-1.4); ABSOLUTE NEUT (AUTO) 3.5 10^3/uL (1.7-8.2); BASOPHILS % (AUTO) 0.4 % (0-2); EOSINOPHILS % (AUTO) 6.3 % (0-6); HEMATOCRIT 40.5 % (36.0-47.0); HEMOGLOBIN 14.2 g/dL (12.0-15.5); LYMPHOCYTES % (AUTO) 31.3 % (13-45); MEAN CORPUSCULAR HEMOGLOBIN 30.1 pg (27.0-33.4); MEAN CORPUSCULAR HGB CONC 35.2 g/dL (32.0-36.0); MEAN CORPUSCULAR VOLUME 85 fl (80-97); PLATELET COUNT 179 10^3/uL (150-450); RED BLOOD COUNT 4.74 10^6/uL (3.72-5.28); RED CELL DISTRIBUTION WIDTH 13.9 % (11.5-14.0); TOTAL CELLS COUNTED % (AUTO) 100 %; WHITE BLOOD COUNT 6.4 10^3/uL (4.0-10.5)
[2019-12-20 01:00] LABS: ALKALINE PHOSPHATASE 78 U/L (38-126); ANION GAP 6 (5-19); ASPARTATE AMINO TRANSFERASE 42 U/L (14-36); BILIRUBIN,DIRECT 0.1 mg/dL (0.0-0.4); BILIRUBIN,TOTAL 0.7 mg/dL (0.2-1.3); BLOOD UREA NITROGEN 18 mg/dL (7-20); CALCIUM 9.3 mg/dL (8.4-10.2); CARBON DIOXIDE 30 mmol/L (22-30); CHLORIDE 103 mmol/L (98-107); TOTAL PROTEIN 7.9 g/dL (6.3-8.2)
[2019-12-20 01:06] LABS: GLUCOSE 69 mg/dL (75-110)
[2019-12-20 02:53] VITALS: BP 139/72
--- NOTE | 2019-12-20 07:21 | EKG REPORT ---
SEVERITY:- NORMAL ECG - SINUS RHYTHM : Confirmed by: Cheo Hernandez MD 20-Dec-2019 07:20:27
== END 2019-12-20 02:57 | disposition home or self-care (01) ==
LOC: ER 20:58
DX: R11.2 Nausea with vomiting, unspecified (principal); R43.9 Unspecified disturbances of smell and taste; F17.200 Nicotine dependence, unspecified, uncomplicated; R50.9 Fever, unspecified; J44.9 Chronic obstructive pulmonary disease, unspecified; B19.20 Unspecified viral hepatitis C without hepatic coma; I10 Essential (primary) hypertension
CPT/HCPCS: 36415; 71045; 80053; 84484; 85025; 93005; 93010; 99284; 99406